=== PATIENT | female | born 1950 | race Caucasian/White ===

== ENCOUNTER → 2019-11-15 | Outpatient (CLI) | payer MEDICARE ==
[2019-11-20 15:07] VITALS: BMI 34.7
== END | disposition home or self-care (01) ==
LOC: LABPAT 12:03
PROVIDERS: ATTEND Orthopaedic Surgery
DX: Z01.812 Encounter for preprocedural laboratory examination (principal); M16.11 Unilateral primary osteoarthritis, right hip
CPT/HCPCS: 87070

== ENCOUNTER → 2019-11-20 | Outpatient (CLI) | payer MEDICARE ==
[2019-11-20 16:39] LABS: Basophils # (A) 0.1 k/uL (0-0.2); Basophils % (A) 1 %; Eosinophils # (A) 0.2 k/uL (0-0.7); Eosinophils % (A) 2 %; HGB 11.2 gm/dL (11.4-16.0); Lymphocytes # (A) 2.2 k/uL (1.0-4.8); Lymphocytes % (A) 25 %; MCH 27.9 pg (25.0-35.0); MCHC 32.1 g/dL (31.0-37.0); MCV 87.2 fL (80.0-100.0); Mean Platelet Volume 7.6; Monocytes # (A) 0.4 k/uL (0-1.0); Monocytes % (A) 4 %; Neutrophils # (A) 5.8 k/uL (1.3-7.7); Neutrophils % (A) 66 %; Platelet Count 293 k/uL (150-450); RBC 4.02 m/uL (3.80-5.40); RDW 13.1 % (11.5-15.5); WBC 8.7 k/uL (3.8-10.6)
[2019-11-20 16:48] LABS: African American GFR (CKD) >90 (>60 ml/min/1.73 sqM); Anion Gap 9 mmol/L; Blood Urea Nitrogen 18 mg/dL (7-17); Carbon Dioxide 27 mmol/L (22-30); Chloride 103 mmol/L (98-107); Non-African American GFR(CKD) 85 (>60 ml/min/1.73 sqM); Potassium 4.7 mmol/L (3.5-5.1); Sodium 139 mmol/L (137-145)
[2019-11-20 16:52] LABS: INR 0.9 (<1.2); Partial Thromboplastin Time 23.9 sec (22.0-30.0); Prothrombin Time 10.1 sec (9.0-12.0)
== END | disposition home or self-care (01) ==
LOC: LABPAT 15:46
PROVIDERS: ATTEND Orthopaedic Surgery
DX: Z01.812 Encounter for preprocedural laboratory examination (principal); M16.11 Unilateral primary osteoarthritis, right hip; Z79.4 Long term (current) use of insulin; Z79.01 Long term (current) use of anticoagulants
CPT/HCPCS: 36415; 80051; 82565; 84520; 85025; 85610; 85730

== ENCOUNTER → 2020-07-22 | Outpatient (CLI) | payer MEDICARE | END | disposition home or self-care (01) | LOC: LABPAT 12:21 | PROVIDERS: ATTEND Orthopaedic Surgery | DX: Z01.812 Encounter for preprocedural laboratory examination (principal); M16.12 Unilateral primary osteoarthritis, left hip | CPT/HCPCS: 87070 ==

== ENCOUNTER 2020-07-28 13:50 | Day surgery (SDC) | payer MEDICARE ==
[2020-07-23 12:00] VITALS: BMI 33.6
--- NOTE | 2020-07-28 09:23 | HP ---
HISTORY AND PHYSICAL REASON FOR ADMISSION: Surgery is 07/28/2020 HISTORY OF PRESENT ILLNESS: Ruth Sommers is a 70-year-old patient seen with symptomatic left hip osteoarthritis. We discussed options for treatment. She elected to proceed with total hip arthroplasty. Consent regarding the procedure was obtained. Medical clearance was provided by Dr. Mendel Hair. PAST MEDICAL HISTORY: Hypertension, insulin-dependent diabetes. PAST SURGICAL HISTORY: Hysterectomy, carpal tunnel release, lumbar spine surgery, right total hip arthroplasty. MEDICATIONS: Furosemide, gabapentin, glyburide, insulin, lisinopril/hydrochlorothiazide. ALLERGIES: CELEBREX. SOCIAL HISTORY: She denies current tobacco use. PHYSICAL EXAMINATION: Evaluation of her left hip: There is diffuse tenderness, a very limited range of motion with severe pain. Positive hip impingement sign. Straight leg raise negative. Her distal neurovascular exam is intact. RADIOGRAPHS: Radiographs of the left hip revealed severe osteoarthritic changes. IMPRESSION: 1. Left hip osteoarthritis. 2. Hypertension. PLAN: Left total hip arthroplasty. Surgery is scheduled for 07/28/2020. MMODL / IJN: [id number] /
[~2020-07-28 13:50] MED LIST: ACETAMINOPHEN TAB 500 MG TAB PO ONE; MELOXICAM 7.5 MG TAB PO ONE; TRANEXAMIC ACID 1,000 MG in SODIUM CHLORIDE 0.9% 100 ML IVPB ONE
[2020-07-28] MEDS ORDERED: HYDROmorphone 0.5 MG/0.5 ML SYRINGE IVP PRN ×4 (13:59→17:33)
[2020-07-28] MEDS ORDERED: ONDANSETRON 4 MG/2 ML VIAL IVP ONE (13:59)
[2020-07-28] MEDS ORDERED: DEXAMETHASONE SOD PHOSPHATE 10 MG/ML 1 ML VIAL IV ONE (13:59)
[2020-07-28] MEDS ORDERED: LACTATED RINGERS 1,000 ML IV SCH (13:59)
[2020-07-28] MEDS ORDERED: LIDOCAINE 1% (10MG/ML) FOR IV START INTRADERMA ONE (14:31)
[2020-07-28 14:35] VITALS: RESP 16
[2020-07-28 14:38] LABS: Glucose,Whole Blood 70 mg/dL (75-99)
[2020-07-28] MEDS ORDERED: DEXTROSE 50% SYRINGE 50 ML IVP ONE ×2 (14:43→18:07)
[2020-07-28 15:06] LABS: Glucose,Whole Blood 118 mg/dL (75-99)
[2020-07-28] MEDS ORDERED: fentaNYL (PF) 50 MCG/ML 2 ML AMP ONE (15:39)
[2020-07-28] MEDS ORDERED: MIDAZOLAM 2 MG/2 ML VIAL ONE (15:39)
[2020-07-28] MEDS ORDERED: SODIUM CHLORIDE 0.9% 100 ML BAG ONE (15:39)
[2020-07-28] MEDS ORDERED: PROPOFOL 10 MG/ML 20 ML VIAL IV ONE (15:39)
[2020-07-28] MEDS ORDERED: TRANEXAMIC ACID 1,000 MG/10 ML VIAL ONE (15:39)
[2020-07-28] MEDS: ROPIVACAINE 246.25 MG, EPINEPHrine 0.5 MG, KETOROLAC 30 MG, cloNIDine HCL/PF 80 MCG, WA... MISCELLANE ONE ×10 (16:16→16:46)
[2020-07-28] MEDS ORDERED: ceFAZolin 1,000 MG in SODIUM CHLORIDE 0.9% 1,000 ML IRRIGATION ONE (16:17)
[2020-07-28] MEDS ORDERED: LACTATED RINGERS 1,000 ML IV ONE (17:01)
--- NOTE | 2020-07-28 17:32 | P.OP ---
Date of Procedure: 07/28/20 Preoperative Diagnosis: Left hip osteoarthritis Postoperative Diagnosis: Left hip osteoarthritis Procedure(s) Performed: Direct anterior left total hip arthroplasty Implants: 1. Depuy Corail KA size 8 standard collar press-fit femoral stem 2. Depuy pinnacle 52 mm multi hole press-fit acetabular shell 3. Depuy pinnacle polyethylene acetabular liner neutral 36 mm ID 52 mm OD 4. Biolox delta ceramic femoral head +1.5 36 mm Anesthesia: local, spinal Surgeon: Franklyn Santana Office Asst #1: Iftikhar Zaldivar Estimated Blood Loss (ml): 225 Pathology: other (Femoral head) Condition: stable Disposition: PACU Indications for Procedure: 70-year-old patient seen with symptomatic left hip osteoarthritis. After treatment options were discussed, she elected to proceed with direct anterior left total hip arthroplasty. Operative Findings: see description of procedure Description of Procedure: The patient was taken to the operative suite. Patient underwent a spinal anesth etic by the department of anesthesia. Patient was then transferred to the [place] table. Patient was given preoperative IV antibiotics and TXA. Both lower extremities were placed in standard leg spars. The hip was then prepped and draped in the normal sterile orthopedic fashion. A standard anterior incision was made beginning 3 cm lateral and 1 cm distal to the ASIS extending 10 cm. Dissection was then carried down through the subcutaneous soft tissues down to the fascia overlying the tensor fascia get. An incision was now made through the fascia. Careful dissection was taken down exposing the tensor fascia get muscle. A Cobra retractor was now placed along the medial femoral neck and a second one along the lateral femoral neck. The venous circumflex vessels were now identified, cauterized and clipped. We identified the anterior hip capsule. An incision was made through the hip capsule along the lateral border. I performed a partial anterior capsulectomy. Retractors were now placed around the femoral neck itself. A femoral neck cut was now made with a sagittal saw. It was completed with an osteotome at the lateral neck area. The femoral head was now removed without difficulty. The extremity was now rotated to 60 of external rotation. It was locked in position. Residual labrum was now debrided out. Serial reaming was performed of the acetabulum while Carlos OLIVA assisted holding an anterior retractor for exposure. Once we reached the appropriate size and a trial was position and fit nicely. The appropriate size was now chosen opened and made available. It was introduced into the acetabulum without difficulty. The C-arm/fluoroscopy was now brought into the operative field. We made sure we had a true AP pelvic view. We now under direct C-arm/f luoroscopy introduced into the acetabular component with appropriate version and inclination. I held the cup in appropriate position well Carlos OLIVA used a mallet to seat the acetabular component. I noted the component now to be well seated and stable. Acetabular cup introduce her was removed. The C-arm was pulled back. An appropriate liner was introduced and clicked into position. It was felt to be stable. At this point retractors were removed. The extremity was now placed into 120 external rotation with no traction. The leg was now dropped to the ground and adducted. Appropriate retractors were now positioned along the proximal femur. We also placed our femoral look into position. Additional capsular releasing was performed to gain access to the proximal femur. We now used a box osteotome. A canal finder was now utilized. Serial broaching was now performed with the assistance of Carlos OLIVA tapping the broaches down with a mallet while held the broach in appropriate rotation and position. This was done until we reached the appropriate size with good overall rotational stability. Appropriate calcar planing was performed. A trial head/neck was placed into position. The hip was now reduced. The C- arm/fluoroscopy was brought back into the operative field. An AP pelvis was obtained to ascertain leg length which appeared to be reasonably aligned. The trial components were positioned well. The C-arm/fluoroscopy was pulled back. Retractors were repositioned and the hip was dislocated. The leg was again taken down to the ground and adducted. Appropriate retractors were repositioned as well as the femoral hook. All trial components were removed. The femoral implant was opened along with the femoral head. The femoral implant was introduced on the appropriate handle into our pre-broached area. I held the component position well Carlos OLIVA used a mallet to seat the femoral component. The femoral component was now noted to be well seated and stable.. The femoral head was introduced with good positioning and fixation noted. Retractors were now removed. The hip was now reduced. There appeared be good positioning of the hip confirmed on intraoperative fluoroscopy. Spot films were obtained to document this. A second gram of TXA was given. The deep and superficial soft tissues were infiltrated with local analgesic. Bipolar cautery had been utilized intermittently through the procedure for hemostasis. The wound was irrigated copiously with pulse lavage mechanical irrigation. The fascia was repaired with Vicryl suture. The subcutaneous soft tissues were repaired in layers with Vicryl suture. The skin was approximated with pernio/Dermabond. Sterile dressings were applied. Patient was then awakened, transferred to a bed and taken to recovery in stable condition. Carlos OLIVA assisted with the complex procedure.
[2020-07-28] MEDS ORDERED: ONDANSETRON 4 MG/2 ML VIAL IVP PRN (17:33)
[2020-07-28] MEDS ORDERED: NALOXONE 0.4 MG/ML 1 ML VIAL IV PRN (17:33)
[2020-07-28] MEDS ORDERED: HYDROcodone/APAP 5-325MG 1 EACH TAB PO PRN (17:33)
[2020-07-28 18:03] LABS: Glucose,Whole Blood 69 mg/dL (75-99)
[2020-07-28 18:26] LABS: Glucose,Whole Blood 120 mg/dL (75-99)
[2020-07-28] MEDS: LACTATED RINGERS 1,000 ML IV SCH (19:14)
[2020-07-28] MEDS ORDERED: ASPIRIN 81 MG PO SCH (21:00)
[2020-07-28] MEDS ORDERED: CYCLOBENZAPRINE 10 MG TAB PO SCH (21:00)
[2020-07-28] MEDS ORDERED: PRAVASTATIN SODIUM 20 MG TAB PO SCH (21:00)
[2020-07-28] MEDS ORDERED: SENNOSIDES-DOCUSATE SODIUM 1 EACH TAB PO SCH (21:00)
[2020-07-28 21:07] LABS: Glucose,Whole Blood 287 mg/dL (75-99)
[2020-07-28] MEDS: metFORMIN 500 MG TAB PO SCH (21:15)
[2020-07-28] MEDS: GABAPENTIN 300 MG CAP PO SCH (21:16)
[2020-07-28] MEDS: INSULIN ASPART (NovoLOG) 100 UNIT/ML VIAL SQ SCH (21:16)
[2020-07-28] MEDS: HYDROcodone/APAP 5-325MG 1 EACH TAB PO PRN (23:12)
[2020-07-29 06:01] LABS: Basophils % (A) 0 %; Eosinophils % (A) 0 %; Hypochromasia Slight; Lymphocytes # (A) 1.4 k/uL (1.0-4.8); Lymphocytes % (A) 7 %; MCH 27.2 pg (25.0-35.0); MCHC 31.2 g/dL (31.0-37.0); MCV 87.3 fL (80.0-100.0); Mean Platelet Volume 7.1; Monocytes # (A) 0.7 k/uL (0-1.0); Monocytes % (A) 4 %; Neutrophils # (A) 16.3 k/uL (1.3-7.7); Neutrophils % (A) 88 %; Platelet Count 312 k/uL (150-450); RBC 3.43 m/uL (3.80-5.40); RDW 13.6 % (11.5-15.5); WBC 18.6 k/uL (3.8-10.6)
[2020-07-29] MEDS: LACTATED RINGERS 1,000 ML IV SCH (06:06)
[2020-07-29 06:08] LABS: HGB 9.3 gm/dL (11.4-16.0)
[2020-07-29 07:14] LABS: Glucose,Whole Blood 219 mg/dL (75-99)
[2020-07-29] MEDS: metFORMIN 500 MG TAB PO SCH (07:47)
[2020-07-29] MEDS: GABAPENTIN 300 MG CAP PO SCH (07:47)
[2020-07-29] MEDS: HYDROcodone/APAP 5-325MG 1 EACH TAB PO PRN (07:47)
[2020-07-29] MEDS: INSULIN ASPART (NovoLOG) 100 UNIT/ML VIAL SQ SCH ×2 (07:49→12:22)
[2020-07-29 08:06] VITALS: BP 121/67; PULSE 67; TEMP 97.9
--- NOTE | 2020-07-29 08:59 | FL ---
Fluoroscopy HISTORY: Anterior hip replacement 10 seconds fluoroscopy time supplied to the referring clinician. 2 intraoperative C-arm images docum ent the procedure. See dictated report from orthopedic surgery.
[2020-07-29] MEDS ORDERED: FUROSEMIDE 20 MG TAB PO SCH (09:00)
[2020-07-29] MEDS ORDERED: ESCITALOPRAM 10 MG TAB PO SCH (09:00)
[2020-07-29] MEDS ORDERED: ENOXAPARIN 40 MG/0.4 ML SYRINGE SQ SCH (09:00)
[2020-07-29] MEDS ORDERED: amLODIPine 5 MG TAB PO SCH (09:00)
[2020-07-29] MEDS ORDERED: PANTOPRAZOLE 40 MG/10 ML VIAL IVP SCH (09:00)
[2020-07-29] MEDS ORDERED: MAGNESIUM OXIDE 400 MG TAB PO SCH (09:00)
[2020-07-29] MEDS ORDERED: LISINOPRIL-HCTZ 20-12.5 MG 1 EACH TAB PO SCH (09:00)
--- NOTE | 2020-07-29 09:00 | XR ---
Limited left hip HISTORY: Anterior hip replacement 2 intraoperative images document the procedure
[2020-07-29 10:12] LABS: African American GFR (CKD) 76.1 (60.0-200.0); Anion Gap 7.9 mmol/L (4.00-12.00); BUN/Creat Ratio 33.33 Ratio (12.00-20.00); Calcium 8.4 mg/dL (8.7-10.3); Carbon Dioxide 25.1 mmol/L (21.6-31.8); Non-African American GFR(CKD) 65.7 (60.0-200.0); Potassium 5.7 mmol/L (3.5-5.5)
--- NOTE | 2020-07-29 10:26 | P.PN ---
Subjective Progress Note Date: 07/29/20 Principal diagnosis: Status post direct anterior left total hip arthroplasty patient is examined today at bedside, she's resting comfortably. She's done well with therapy. She denies any chest pain or shortness of breath. Objective - Vital Signs Vital signs: Vital Signs Temp 97.9 F 07/29/20 07:07 Pulse 67 07/29/20 08:00 Resp 16 07/29/20 08:00 BP 121/67 07/29/20 07:07 Pulse Ox 97 07/29/20 07:07 Intake & Output 07/28/20 07/29/20 07/29/20 18:59 06:59 18:59 Intake Total 1701 240 Output Total 225 Balance 1476 240 Weight 79.3 kg 79.3 kg Intake: IV 1701 Intake, IV Titration 240 Amount Lactated Ringers 1,000 ml 240 @ 80 mls/hr IV .[id number] NURIS Rx#:[id number] Output: Estimated Blood Loss 225 Other: Voiding Method Toilet Toilet # Voids 2 - Exam Left lower extremity: Incision is clean, dry, and intact. The foam dressing is in good condition. There is minimal soft tissue swelling and ecchymosis surrounding the medial and lateral aspects of the incision. Calf is soft, no tenderness with palpation. Plantar flexion, dorsiflexion, EHL, FHL are intact. Sensory exam to light touch throughout the extremity is intact, dorsal pedis pulses 2+. - Labs CBC & Chem 7: 07/29/20 05:29 07/29/20 05:29 Labs: Abnormal Lab Results - Last 24 Hours (Table) 07/28/20 07/28/20 07/28/20 Range/Units 14:33 15:05 18:02 WBC (3.8-10.6) k/uL RBC (3.80-5.40) m/uL Hgb (11.4-16.0) gm/dL Hct (34.0-46.0) % Neutrophils # (1.3-7.7) k/uL Sodium (135-145) mmol/L Potassium (3.5-5.5) mmol/L BUN (9.0-27.0) mg/dL BUN/Creatinine Ratio (12.00-20.00) Ratio Glucose (70-110) mg/dL POC Glucose (mg/dL) 70 L 118 H 69 L (75-99) mg/dL Calcium (8.7-10.3) mg/dL 07/28/20 07/28/20 07/29/20 Range/Units 18:24 21:05 05:29 WBC 18.6 H (3.8-10.6) k/uL RBC 3.43 L (3.80-5.40) m/uL Hgb 9.3 L D (11.4-16.0) gm/dL Hct 30.0 L (34.0-46.0) % Neutrophils # 16.3 H (1.3-7.7) k/uL Sodium (135-145) mmol/L Potassium (3.5-5.5) mmol/L BUN (9.0-27.0) mg/dL BUN/Creatinine Ratio (12.00-20.00) Ratio Glucose (70-110) mg/dL POC Glucose (mg/dL) 120 H 287 H (75-99) mg/dL Calcium (8.7-10.3) mg/dL 07/29/20 07/29/20 Range/Units 05:29 07:06 WBC (3.8-10.6) k/uL RBC (3.80-5.40) m/uL Hgb (11.4-16.0) gm/dL Hct (34.0-46.0) % Neutrophils # (1.3-7.7) k/uL Sodium 134 L (135-145) mmol/L Potassium 5.7 H (3.5-5.5) mmol/L BUN 30.0 H (9.0-27.0) mg/dL BUN/Creatinine Ratio 33.33 H (12.00-20.00) Ratio Glucose 232 H (70-110) mg/dL POC Glucose (mg/dL) 219 H (75-99) mg/dL Calcium 8.4 L (8.7-10.3) mg/dL Assessment and Plan Assessment: Status post direct anterior left total hip arthroplasty Plan: Pain control, plan for discharge home on oral medication GI and DVT prophylaxis, aspirin 81 mg twice a day Wound care instructions were discussed Activity level and home exercise program discussed Medical recommendations Plan for discharge home today
--- NOTE | 2020-07-29 10:29 | P.DS ---
Providers Date of admission: 07/28/2020 Expected date of discharge: 07/29/20 Attending physician: Franklyn Santana Consults: 07/28/20 17:33 Consult Physician Routine Consulting Provider: Mendel Hair Reason/Comments: Medical management Do you want consulting provider notified?: Yes Primary care physician: Stated None Hospital Course: Date of admission: 07/28/2020 Date of discharge: 07/29/2020 Admission diagnosis: Status post direct anterior left total hip arthroplasty Discharge diagnosis: Same Attending physician: Direct anterior left total hip arthroplasty Surgical procedures: Direct anterior left total hip arthroplasty Brief history: Patient is a 70-year-old female with a history of progressive primary left hip osteoarthritis. At this point patient has failed conservative treatment measures and has opted to proceed with a elective direct anterior left total hip arthroplasty. Hospital course: Details of patient's surgery can be found in operative report. Patient tolerated the procedure well and was subsequently transported to orthopedic floor. Patient's orthopeidc and medical care was provided daily. Patient had daily laboratory tests performed for evaluation of overall blood counts. Patient had daily physical therapy to include strengthening range of motion as well as education with walker ambulation. Patient was treated with Lovenox for their postoperative DVT prophylaxis during their inpatient stay. Patient was noted to have a relatively uneventful postoperative course. Patient reported satisfactory pain control with oral pain medications by postoperative day 0. Patient showed satisfactory progress with physical therapy. Patient moved steadily through the program and had no difficulty meeting the goals by postoperative day 1. Given patient's otherwise satisfactory course and having met physical therapy goals, plan is to discharge patient home on postoperative day 1. Discharge condition/disposition: Patient will be discharged home in stable condition. Discharge medications: Instructions are given on resumption of patient's normal daily medications per primary care recommendation, in addition patient will be prescribed Fernwood 5 mg/325 mg, Colace 100 mg, aspirin 81 mg, ferrous sulfate 325 mg. Discharge instructions: 1. Wound care and infection precautions, keep incision dry and covered while showering, no lotions, creams, moisturizers. No soaking, tubs, pools, hottubs. Do not scrub over the incision. 2. Weight-bear as tolerated with walker / cane until follow-up. 3. Ice and elevate when necessary. Do not exceed 20 minutes per hour with ice pack. 4. Utilize compression sleeve until seen at first follow up appointment. 5. Visiting nursing care. 6. Home physical therapy. 7. Pain meds and anticoagulants per prescription. 8. Pain medication has potential to cause constipation. Increase oral fluid and fiber intake. Contact primary care provider if you have not had a bowel movement within 48 hours after discharge 9. No anti-inflammatory medication until discussed at first post operative visit, this including Motrin, Aleve, Mobic, Diclofenac. 10. Follow up in office at 2 weeks postop with Carlos Zaldivar PA-C 11. Follow up with your primary care doctor 7-10 days after discharge. 12. Contact [facility] with any questions, . Procedures: Direct anterior left total hip arthroplasty Patient Condition at Discharge: Good Plan - Discharge Summary Discharge Rx Participant: No New Discharge Prescriptions: New Aspirin [Adult Low Dose Aspirin EC] 81 mg PO BID #60 tablet. Docusate [Colace] 100 mg PO DAILY #30 capsule Ferrous Sulfate [Feosol] 325 mg PO BID #40 tab Hydrocodone/Acetaminophen [[place]wood 5-325] 1 - 2 each PO Q6HR PRN #40 tab PRN Reason: Pain Discontinued Aspirin [Adult Low Dose Aspirin EC] 81 mg PO MOWEFR No Action Insulin Glargine [Lantus] 140 unit SQ 1730 metFORMIN HCL [Glucophage] 500 mg PO BID glyBURIDE [Diabeta] 5 mg PO AC-BID Lisinopril-Hctz 20-12.5 mg [Zestoretic 20-12.5] 1 tab PO DAILY Furosemide [Lasix] 20 mg PO DAILY Escitalopram [Lexapro] 10 mg PO DAILY Pravastatin Sodium [Pravachol] 20 mg PO HS Cyclobenzaprine [Flexeril] 10 mg PO HS Magnesium 500 mg PO DAILY Gabapentin [Neurontin] 300 mg PO TID Acetaminophen [Tylenol Extra Strength] 500 mg PO Q6H PRN PRN Reason: Pain amLODIPine [Norvasc] 5 mg PO DAILY Discharge Medication List Acetaminophen [Tylenol Extra Strength] 500 mg PO Q6H PRN 11/20/19 [History] Cyclobenzaprine [Flexeril] 10 mg PO HS 11/20/19 [History] Escitalopram [Lexapro] 10 mg PO DAILY 11/20/19 [History] Furosemide [Lasix] 20 mg PO DAILY 11/20/19 [History] Gabapentin [Neurontin] 300 mg PO TID 11/20/19 [History] Insulin Glargine [Lantus] 140 unit SQ 1730 11/20/19 [History] Lisinopril-Hctz 20-12.5 mg [Zestoretic 20-12.5] 1 tab PO DAILY 11/20/19 [History] Magnesium 500 mg PO DAILY 11/20/19 [History] Pravastatin Sodium [Pravachol] 20 mg PO HS 11/20/19 [History] glyBURIDE [Diabeta] 5 mg PO AC-BID 11/20/19 [History] metFORMIN HCL [Glucophage] 500 mg PO BID 11/20/19 [History] amLODIPine [Norvasc] 5 mg PO DAILY 07/23/20 [History] Aspirin [Adult Low Dose Aspirin EC] 81 mg PO BID #60 tablet. 07/29/20 [Rx] Docusate [Colace] 100 mg PO DAILY #30 capsule 07/29/20 [Rx] Ferrous Sulfate [Feosol] 325 mg PO BID #40 tab 07/29/20 [Rx] Hydrocodone/Acetaminophen [Fernwood 5-325] 1 - 2 each PO Q6HR PRN #40 tab 07/29/20 [Rx] Follow up Appointment(s)/Referral(s): Mendel Hair DO [Primary Care Provider] - 1 Week Iftikhar Zaldivar PAC [PHYSICIAN SILK PRESSER] - 08/13/20 3:30 pm Activity/Diet/Wound Care/Special Instructions: Orthopedic Discharge Instructions: 1. Wound care and infection precautions, keep incision dry and covered while showering, no lotions, creams, moisturizers. No soaking, pools, hot tubs. Do not scrub over incision. 2. Weight-bear as tolerated with walker / cane until follow-up. 3. Ice and elevate when necessary. Do not exceed 20 minutes per hour with ice pack. 4. Utilize compression sleeve until seen at first follow up appointment. 5. Pain meds and anticoagulants per prescription. 6. Pain medication has potential to cause constipation. Increase oral fluid and fiber intake. Contact primary care provider if you have not had a bowel movement within 48 hours after discharge. 7. No anti-inflammatory medication until discussed at first post operative visit, this including Motrin, Aleve, Mobic, Diclofenac. 8. Follow up in office at 2 weeks postop with Carlos Zaldivar PA-C 9. Follow up with your primary care doctor 7-10 days after discharge. 10. Contact [facility] with any questions, . Discharge Disposition: HOME WITH HOME HEALTH SERVICES
[2020-07-29 11:34] LABS: Glucose,Whole Blood 207 mg/dL (75-99)
[2020-07-29] MEDS ORDERED: INSULIN DETEMIR (LEVEMIR) 100 UNIT/ML SYR SQ SCH (17:30)
[2020-07-29 22:19] LABS: Hemoglobin A1C 7.6 % (4.0-6.0)
== END 2020-07-29 13:18 | disposition home health service (06) ==
LOC: OR 13:50 → 4SSUR 18:53 → OR 07-29 13:18
PROVIDERS: ATTEND Orthopaedic Surgery
DX: M16.12 Unilateral primary osteoarthritis, left hip (principal); I10 Essential (primary) hypertension; E11.9 Type 2 diabetes mellitus without complications; E78.5 Hyperlipidemia, unspecified; F32.9 Major depressive disorder, single episode, unspecified; Z88.6 Allergy status to analgesic agent; Z79.4 Long term (current) use of insulin; Z79.899 Other long term (current) drug therapy; Z90.710 Acquired absence of both cervix and uterus; Z96.641 Presence of right artificial hip joint; Z98.890 Other specified postprocedural states
CPT/HCPCS: 97110; 97161; 80048; 85025; 88300; 83036; 73501; 27130; C1776; J2250; J0171; J1100; J0690 ×3; J2405; J1650; J3010; J1885; J2795; J2704; J0735; 36415; 86850; 86900; 86901

== ENCOUNTER → 2023-03-10 | Outpatient (CLI) | payer MEDICARE ==
[2023-03-10 14:14] LABS: African American GFR (CKD) >90 (>60 ml/min/1.73 sqM); Blood Urea Nitrogen 24 mg/dL (7-17); Non-African American GFR(CKD) >90 (>60 ml/min/1.73 sqM)
--- NOTE | 2023-03-10 15:45 | CT ---
EXAMINATION TYPE: CT abdomen pelvis w con DATE OF EXAM: 03/10/2023 COMPARISON: None HISTORY: gastric mass CT DLP: 1446 mGycm CONTRAST: CT scan of the abdomen and pelvis is performed with Oral Contrast and with IV Contrast, patient injec richard with 100 mL of Isovue 300. FINDINGS: LUNG BASES-: No visible nodule. No infiltrate. LIVER/GB: No calcified gallstones. No space occupying hepatic lesion. Biliary tree is of normal ca liber. Artifact limits evaluation of the liver. PANCREAS: No inflammation. No distinct mass. SPLEEN: No splenic enlargement. No lesion seen. ADRENALS: No nodule. No thickening. KIDNEYS/BLADDER: No hydronephrosis. No nephrolithiasis. No distinct renal mass. Urinary bladder g rossly unremarkable. BOWEL: Normal appendix. There is exophytic Gastric mass measuring 4.6 x 3.3 x 3.4 cm. Malignancy is not excluded. Direct visualization and tissue diagnosis is advised. Normal bowel caliber. No inflamm ation. GENITAL ORGANS: No gross abnormality. LYMPH NODES: No greater than 1cm abdominal or pelvic lymph nodes are appreciated. AORTA: No significant abnormality. OSSEOUS STRUCTURES: Postoperative and degenerative changes lumbar spine. Grade 1 anterolisthesis L3 o n L4. OTHER: No significant additional abnormality is seen. IMPRESSION: 1. There is exophytic Gastric mass measuring 4.6 x 3.3 x 3.4 cm. Malignancy is not excluded. Direct v isualization and tissue diagnosis is advised.
== END | disposition home or self-care (01) ==
LOC: RADCTMAIN 10:06
PROVIDERS: ATTEND Surgery
DX: K31.9 Disease of stomach and duodenum, unspecified (principal)
CPT/HCPCS: 82565; 84520; 74177; 36415; Q9967

== ENCOUNTER → 2023-07-29 | Outpatient (CLI) | payer MEDICARE ==
[2023-07-29 13:32] LABS: African American GFR (CKD) 89 (>60 ml/min/1.73 sqM); Blood Urea Nitrogen 28 mg/dL (7-17); Non-African American GFR(CKD) 77 (>60 ml/min/1.73 sqM)
--- NOTE | 2023-07-29 15:57 | CT ---
EXAMINATION TYPE: CT ChestAbdPelvis w con DATE OF EXAM: 07/29/2023 COMPARISON: 03/10/2023 HISTORY: 73-year-old female C49.A2 h/o stomach CA f/u TECHNIQUE: Contiguous axial scanning of the chest, abdomen, and pelvis performed with IV Contrast, pa tient injected with 100 mL of Isovue 300. Delayed images through the kidneys were obtained. Coronal/s agittal reconstructions performed. CT DLP: 1487.8 mGycm Automated exposure control for dose reduction was used. FINDINGS: CHEST: The heart is upper limits of normal in size. Trace pericardial fluid along the lateral left ventricul ar wall. Extensive LAD and circumflex coronary calcifications are present. Aorta normal caliber with mild atherosclerotic arch calcifications. Moderate atherosclerotic narrowin g at the origin of the left subclavian artery. There are are abnormal right axillary lymph nodes thickened up to 1.8 cm. There is a lateral right br east mass measuring 2.7 cm. Otherwise, no thoracic lymphadenopathy seen. Mild diffuse bronchial wall thickening appears chronic or could reflect bronchitis or asthma. No cons olidation or pleural effusion. ABDOMEN: No focal liver lesion or biliary ductal dilatation. Portal venous system is patent. Gallbladder, adrenal glands, kidneys, spleen with hilar splenule, and pancreas within normal limits. There is postsurgical change along the anterior wall of the proximal gastric body at the site of prev ious gastric wall mass. No abnormal soft tissue thickening is seen here. Moderate atherosclerotic calcifications infrarenal abdominal aorta and iliac arteries. More severe at herosclerotic changes bilateral proximal common iliac arteries. Normal appendix. Mild to moderate stool burn. No pericolic inflammatory change. PELVIS: Bladder urine distended. Prominent metal artifact relating to the patient's bilateral total hip arthr oplasties limiting visualization of pelvic structures. Numerous pelvic phleboliths. Uterus surgically absent. Both ovaries are visualized. No obvious fluid collection in the pelvis. Prominent lymph node s in the pelvis along the external iliac chains remain unchanged measuring up to 1.0 cm. BONES: Advanced disc/endplate degenerative change L2-L3. Moderate at L4-L5. Hypertrophic facet arthropathy m id to lower lumbar spine with degenerative grade 1 anterolisthesis L3-L4. Previous L4-L5 posterior an d interbody fusion. Extensive DISH mid and lower thoracic spine. No osseous destructive process. IMPRESSION: 1. INTERVAL SURGICAL RESECTION OF THE PREVIOUS MASS ALONG THE ANTERIOR WALL OF THE PROXIMAL GASTRIC B LEENA. NO RESIDUAL OR RECURRENT DISEASE IDENTIFIED. 2. NOTE THE SUSPICIOUS LATERAL RIGHT BREAST MASS MEASURING 2.7 CM WITH RIGHT AXILLARY ADENOPATHY KWAKU URING UP TO 1.8 CM. FURTHER DIAGNOSTIC MAMMOGRAPHIC/ULTRASOUND WORKUP AND ONCOLOGY EVALUATION RECOMME NDED.
--- NOTE | 2023-08-01 09:35 | MM ---
Reason for Exam: Screening (asymptomatic). Baseline mammogram. Patient History: Menarche at age 20. First Full-Term at age 25. Hysterectomy at age 37. Risk Values: Maryam 5 year model risk: 1.4%. NCI Lifetime model risk: 4.0%. Prior Study Comparison: Patient's first Mammogram. Tissue Density: There are scattered fibroglandular densities. Findings: Analyzed By CAD. 2.8 x 2.6 cm mass upper outer quadrant right breast approximately 8 cm from the nipple. Ultrasound is recommended. No additional masses seen. Vascular calcifications noted left breast. Overall Assessment: Incomplete: need additional imaging evaluation, BI-RAD 0 Management: Diagnostic Breast Ultrasound of the right breast. . Patient should continue monthly self-breast exams. A clinical breast exam by your physician is recommended on an annual basis. This exam should not preclude additional follow-up of suspicious palpable abnormalities. Note on Maryam scores and lifetime risk: 1. A Maryam score greater than 3% is considered moderate risk. If this is the case, consider specialist referral to assess eligibility for a risk reducing agent. 2. If overall lifetime risk for the development of breast cancer is 20% or higher, the patient may qualify for future screening with alternating mammogram and breast MRI. Electronically signed and approved by: Tani Kelly M.D. Radiologis
== END | disposition home or self-care (01) ==
LOC: RADCTMAIN 12:43
PROVIDERS: ATTEND Internal Medicine
DX: Z12.31 Encounter for screening mammogram for malignant neoplasm of breast (principal); C49.A2 Gastrointestinal stromal tumor of stomach; N63.10 Unspecified lump in the right breast, unspecified quadrant; R59.0 Localized enlarged lymph nodes
CPT/HCPCS: 82565; 84520; 77067; 77063; 71260; 74177; 36415; Q9967

== ENCOUNTER → 2023-08-02 | Outpatient (CLI) | payer MEDICARE ==
--- NOTE | 2023-08-02 13:25 | USB ---
Reason for Exam: Additional evaluation requested from abnormal screening. Patient History: Menarche at age 20. First Full-Term at age 25. Hysterectomy at age 37. Risk Values: Maryam 5 year model risk: 1.4%. NCI Lifetime model risk: 4.0%. Technique: Method: Targeted. Prior Study Comparison: 07/29/2023 Bilateral MG 3D screening mammo w/cad, [facility]. Findings: The upper outer quadrant of the right breast, the axilla of the right breast and the retroareolar of the right breast were scanned. There is a 2.0 x 2.7 x 1.8 cm slightly lobular hypoechoic area may have some posterior wall enhancement. Complex cysts or mass may be present. Additional workup with biopsy is recommended. This correlates with mammographic findings. Overall Assessment: Suspicious, BI-RAD 4 Management: Ultrasound Core Biopsy of the right breast. A negative mammogram report should not preclude additional follow up of suspicious palpable abnormalities. Patient should continue monthly self breast exam. A clinical breast exam by your physician is recommended on an annual basis and results should be correlated with mammographic findings. Electronically signed and approved by: Andriy Crowe D.O. Radiologis
== END | disposition home or self-care (01) ==
LOC: RADUSWWP 12:47
PROVIDERS: ATTEND Internal Medicine
DX: R92.8 Other abnormal and inconclusive findings on diagnostic imaging of breast (principal)

== ENCOUNTER → 2023-08-15 | Day surgery (SDC) | payer MEDICARE ==
--- NOTE | 2023-08-15 14:35 | MM ---
Reason for Exam: Post Procedure Mammogram. Last screening mammogram was performed less than 1 month ago. Patient History: Menarche at age 20. First Full-Term at age 25. Hysterectomy at age 37. Colorectal cancer. Risk Values: Maryam 5 year model risk: 1.4%. NCI Lifetime model risk: 4.0%. Prior Study Comparison: 07/29/2023 Bilateral MG 3D screening mammo w/cad, [facility]. Tissue Density: Right: There are scattered fibroglandular densities. Overall Assessment: Post procedure mammogram for marker placement Management: Post Mammogram for [place] Placement Electronically signed and approved by: Malachi Glez DO
--- NOTE | 2023-08-19 13:20 | USB ---
Risk Values: Maryam 5 year model risk: 1.4%. NCI Lifetime model risk: 4.0%. Prior Study Comparison: 07/29/2023 Bilateral MG 3D screening mammo w/cad, [facility]. Pathology Description: Location: 10 o'clock, upper outer quadrant. Marker Left Behind. Needle Type: Mammotome Cores: 3 Skin Nicks: 1 Gauge: 13 Pathology Description: Location: axilla. Marker Left Behind. Cores: 3 Gauge: 14 The procedure of ultrasound guided core biopsy was explained to the patient. Benefits, alternatives, and risks were discussed. An informed consent was then obtained. A time out was performed The patient was placed in supine positioning for imaging and for the procedure. The overlying skin was prepped and draped in usual sterile fashion. 5 ml 1% lidocaine was used as anesthetic into the skin and subcutaneous tissue up to area of concern in right breast mass. A inna was made with surgical scalpel. Under ultrasound guidance, a 12-gauge vacuum assisted biopsy gun device was used to obtain 3 core samples. Following this, a wing clip biopsy clip was left in the lesion. Next attention was taken to the axillary lymph node and 3 core samples were taken with butterfly [place] kacie clip left in place. A post procedure mammogram was performed, clip seen and correlates with the right breast mass the axillary clip was not in the [id number] on mammography. The patient tolerated the procedure well without any immediate complication. The patient was discharged home in stable condition. Impression: Successful, uncomplicated ultrasound guided core biopsy of area of concern in the right breast mass and right axillary lymph node. PATHOLOGY STATUS: Results pending. Pathology Results: Result: Malignant, Invasive ductal carcinoma. A. RIGHT BREAST, 10:00 POSITION, ULTRASOUND GUIDED CORE BIOPSY: Invasive high grade ductal carcinoma with abundant necrosis (see surgical pathology cancer case summary and comment). B. RIGHT BREAST AXILLA, ULTRASOUND GUIDED CORE BIOPSY: High grade ductal carcinoma with associated lymphoid tissue, compatible with metastatic high grade ductal carcinoma (see surgical pathology cancer case summary and comment). Overall Assessment: Malignant Management: Surgical Consultation of the right breast. Electronically signed and approved by: Malachi Glez DO
== END ==
LOC: RADUSWWP 12:30
PROVIDERS: ATTEND Internal Medicine
DX: C50.411 Malignant neoplasm of upper-outer quadrant of right female breast (principal)
CPT/HCPCS: 88305; 88342; 88341; 77065; 19083; A4648

== ENCOUNTER 2023-09-23 07:48 | Day surgery (SDC) | payer MEDICARE ==
--- NOTE | 2023-09-23 07:34 | P.GSHP ---
History of Present Illness H&P Date: 09/23/23 Chief Complaint: Right breast cancer 73-year-old female seen today for elective surgery for her recently diagnosed right breast cancer. Patient found to have a 2.7 cm upper outer quadrant mass right breast high-grade invasive ductal carcinoma. She is ER/AR positive, HER-2/cristina negative. She had multiple lymph nodes also seen in the right axilla on CAT scan the largest of which showed metastatic disease. Patient had an Oncotype BX core of 34 and oncology has plans for adjuvant chemotherapy. After discussion with oncology and the patient decision has been made to proceed with upfront surgery rather than neoadjuvant treatment. Past Medical History Past Medical History: Cancer, Diabetes Mellitus, Hyperlipidemia, Hypertension, Osteoarthritis (OA) Additional Past Medical History / Comment(s): Neuropathy in hands and feet, back pain, macular edema, gout, carpal tunnel bilateral. 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 Past Anesthesia/Blood Transfusion Reactions: No Reported Reaction Smoking Status: Former smoker - Past Family History Sister(s) Family Medical History: Cancer Additional Family Medical History / Comment(s): skin Father Family Medical History: Cancer Additional Family Medical History / Comment(s): skin Medications and Allergies Home Medications Medication Instructions Recorded Confirmed Type Acetaminophen [Tylenol Extra 1,500 mg PO Q6H PRN 11/20/19 09/20/23 History Strength] Cyclobenzaprine [Flexeril] 10 mg PO HS 11/20/19 09/20/23 History Escitalopram [Lexapro] 10 mg PO DAILY 11/20/19 09/20/23 History Furosemide [Lasix] 20 mg PO DAILY 11/20/19 09/20/23 History Gabapentin [Neurontin] 300 mg PO TID 11/20/19 09/20/23 History Insulin Glargine [Lantus] 140 unit SQ DAILY 11/20/19 09/20/23 History Lisinopril-Hctz 20-12.5 mg 1 tab PO DAILY 11/20/19 09/20/23 History [Zestoretic 20-12.5] Pravastatin Sodium [Pravachol] 20 mg PO HS 11/20/19 09/20/23 History amLODIPine [Norvasc] 5 mg PO DAILY 07/23/20 09/20/23 History Aspirin [Adult Low Dose Aspirin EC] 81 mg PO BID #60 tablet. 07/29/20 09/20/23 Rx Folic Acid 0.4 mg PO DAILY 08/10/23 09/20/23 History metHOTREXate sodium [Methotrexate] 20 mg PO DAILY 08/10/23 09/20/23 History INSULIN LISPRO (HumaLOG) [humaLOG] 0 units SQ DIRECTED 09/20/23 09/20/23 History Unk Vitamin B12 Shot 1 injection SQ Q30D 09/20/23 09/20/23 History Allergies Allergy/AdvReac Type Severity Reaction Status Date / Time celecoxib [From Celebrex] Allergy fluid Verified 09/20/23 10:52 retention Surgical - Exam Physical exam: General: Well-developed, well-nourished HEENT: Normocephalic, sclerae nonicteric Right breast: Upper outer quadrant mass 2.5-3 cm, right axillary lymph node palpable Left breast: No masses, no adenopathy Abdomen: Nontender, nondistended Extremities: No edema Neuro: Alert and oriented Assessment and Plan (1) Breast cancer, right Narrative/Plan: 73-year-old female with stage IIB right breast cancer. We'll proceed with right breast wire localization lumpectomy, right axillary lymph node wire localization, right axillary node dissection. Risks of bleeding, infection, scarring, numbness, lymphedema, nerve injury, weakness, recurrence, possible need for further surgery, need for drain placement all reviewed. She understands and wishes to proceed. Status: Acute Code(s): C50.911 - MALIGNANT NEOPLASM OF UNSP SITE OF RIGHT FEMALE BREAST SNOMED Code(s): 778711395
[~2023-09-23 07:48] MED LIST changes: -ACETAMINOPHEN TAB 500 MG TAB PO ONE; +ACETAMINOPHEN TAB 500 MG TAB PO PRN; +DEXAMETHASONE SOD PHOSPHATE 4 MG/ML 1 ML VIAL IV ONE; +HEPARIN SODIUM,PORCINE/PF 5,000 UNIT/0.5 ML SYRINGE SQ PRN; -MELOXICAM 7.5 MG TAB PO ONE; +MIDAZOLAM 2 MG/2 ML VIAL IV PRN; +ONDANSETRON 4 MG/2 ML VIAL IVP ONE; -TRANEXAMIC ACID 1,000 MG in SODIUM CHLORIDE 0.9% 100 ML IVPB ONE
[2023-09-23] MEDS: LACTATED RINGERS 1,000 ML IV SCH (08:14)
[2023-09-23] MEDS ORDERED: ALPRAZolam 0.25 MG TAB ONE (08:35)
[2023-09-23] MEDS ORDERED: ALPRAZolam 0.25 MG TAB PO ONE (08:36)
[2023-09-23 08:48] LABS: Glucose,Whole Blood 98 mg/dL (70-110)
[2023-09-23 09:13] VITALS: RESP 16
[2023-09-23] MEDS ORDERED: LIDOCAINE 1% INJ 10MG/ML (20 ML MDV) SQ ONE (09:26)
[2023-09-23] MEDS ORDERED: PROPOFOL 10 MG/ML 20 ML VIAL IV ONE (11:00)
[2023-09-23] MEDS ORDERED: GLYCOPYRROLATE 0.2 MG/ML 2 ML VIAL ONE (11:00)
[2023-09-23] MEDS ORDERED: LIDOCAINE 1% INJ 10MG/ML (20 ML MDV) ONE (11:00)
[2023-09-23] MEDS ORDERED: fentaNYL (PF) 50 MCG/ML 2 ML AMP ONE (11:00)
[2023-09-23] MEDS ORDERED: MIDAZOLAM 2 MG/2 ML VIAL ONE (11:00)
[2023-09-23] MEDS ORDERED: KETOROLAC 15 MG/ML 1 ML VIAL ONE (11:00)
[2023-09-23] MEDS ORDERED: PHENYLEPHRINE 10 MG/ML 5 ML VIAL ONE (11:00)
--- NOTE | 2023-09-23 11:53 | USB ---
HISTORY: Right breast cancer with axillary metastasis. COMPARISON: Right breast ultrasound 08/02/2023, screening bilateral mammogram 07/29/2023, right breast ultrasound biopsy 08/15/23 PROCEDURE: The procedure was explained to the patient and all questions were answered. The potential risks inclu ding but not limited to bleeding, infection, and potential need for additional work up were discussed . Informed, written consent was obtained. The correct site was marked. A time out was performed. Ultrasound guided localization was performed for the mass located in the right breast at 10:00 8 cm f rom the nipple. This was described on the previous report and previously sampled with biopsy clip dem onstrated. The skin was prepped in the usual manner. Local anesthetic was administered to the access site using approximately 5 mL of lidocaine. The abnormality was approached from the lateral aspect.?A 7 cm Kopan wire was placed through the lesion under constant ultrasound guidance. The needle was rem soniya.?Attention was then turned to the metastatic right axillary lymph node. Local anesthetic was adm inistered to the access site using approximately 5 mL of lidocaine. A 7 cm Kopan wire was placed thro ugh the lesion under constant ultrasound guidance with the tip identified in the center of the lymph node. This is done through an axillary lateral approach. The needle was removed. The patient tolerate d the procedure and was sent to preoperative holding. Post-procedure mammographic images were obtained demonstrating the right upper outer quadrant breast mass with biopsy clip and wire coursing through the mass. Additionally there is partial evaluation of right axillary wire with the tip appearing to be within a lymph node at the edge of the image. No de finitive clip identified likely due to posterior location of the lymph node. IMPRESSION: Successful ultrasound guided localization of right breast mass and right axillary lymph node.
--- NOTE | 2023-09-23 13:30 | MM ---
Electronically signed and approved by: Antonio Matthews D.O.
--- NOTE | 2023-09-23 13:45 | P.OP ---
Date of Procedure: 09/23/23 Procedure(s) Performed: PREOPERATIVE DIAGNOSIS: Right breast cancer POSTOPERATIVE DIAGNOSIS: Same PROCEDURE: Right Breast wire localization lumpectomy with axillary node dissection and wire localization and right axillary lymph node SURGEON: Robb EBL: 20 mL ANESTHESIA: General COMPLICATIONS: None OPERATIVE PROCEDURE: Patient was placed on the operating room table in the supine position. The breast was prepped and draped in usual sterile fashion. A single incision was made for both the axillary dissection and the cancer removal. A curvilinear incision was made in the inferior axillary hairline. The patient had 2 wires present one entering into the axilla from lateral to medial and one entering into the upper outer quadrant of the breast from lateral to medial. The axilla was first addressed. Dissection through the subcutaneous tissues and the deltopectoral fascia took place using electrocautery. The axilla was inspected. The patient had multiple matted nodes in the axilla. Many of these nodes were enlarged. The axillary vein was identified. The axillary contents and palpable nodes were then swept inferiorly. The thoracodorsal nerve and vascular complex were left intact. The long thoracic nerve was likewise left intact. All palpable lymph nodes were removed at this time. The dissection took place using a combination of LigaSure, electrocautery, blunt dissection, Ligaclip, and 3-0 Vicryl ties. The specimen was sent to pathology labeled axillary contents. The area was inspected for bleeding and none was seen. We then addressed the lumpectomy. The patient's mass was present in the upper outer quadrant. Clinically was not involving the underlying pectoralis major fascia or skin however it was in close proximity to both structures. Flaps were raised anteriorly just beneath the dermis given the proximity to the skin. Flaps were then raised posteriorly along the fascia of the pectoralis. Once I was above and below the palpable mass where the wire was entering the lateral and medial dissection took place. The specimen was palpated. The closest margin seemed to be anteriorly. This was right underneath the skin. The specimen was painted the appropriate 6 colors and sent to radiology to assess clip placement. Both areas were then irrigated with saline. Clips were used to delineate the lumpectomy cavity. Gelfoam powder was used in both sites. A drain was placed in the axilla exiting inferiorly and sutured to the skin using a 3-0 silk stitch. The lumpectomy site was closed to the degree that we were able to using interrupted 2-0 Vicryl sutures. The subcutaneous tissues were closed using 3-0 Vicryl sutures. The skin was closed using a running 4-0 Monocryl stitch. Skin glue was then applied. DISPOSITION: Stable to recovery room
[2023-09-23] MEDS: HYDROmorphone 0.5 MG/0.5 ML SYRINGE IVP PRN ×2 (14:22→14:45)
[2023-09-23] MEDS ORDERED: LACTATED RINGERS 1,000 ML IV ONE ×2 (15:02)
[2023-09-23 15:11] LABS: Glucose,Whole Blood 183 mg/dL (70-110)
[2023-09-23] MEDS ORDERED: HYDROmorphone 1 MG/ML 1 ML SYRINGE IVP PRN (15:12)
[2023-09-23] MEDS ORDERED: ACETAMINOPHEN TAB 325 MG TAB PO PRN (15:12)
[2023-09-23] MEDS ORDERED: NALOXONE 0.4 MG/ML 1 ML VIAL IV PRN (15:12)
[2023-09-23] MEDS ORDERED: traMADol 50 MG TAB PO PRN (15:12)
[2023-09-23] MEDS ORDERED: ONDANSETRON 4 MG/2 ML VIAL IVP PRN (15:12)
[2023-09-23] MEDS ORDERED: INSULIN ASPART (NovoLOG) 100 UNIT/ML VIAL SQ ONE (15:27)
[2023-09-23] MEDS ORDERED: DEXTROSE 50% SYRINGE 50 ML IVP PRN ×2 (16:16)
[2023-09-23 17:09] LABS: Glucose,Whole Blood 176 mg/dL (70-110)
[2023-09-23] MEDS: HEPARIN SODIUM,PORCINE 5,000 UNIT/ML 1 ML VIAL SQ SCH (17:15)
[2023-09-23] MEDS: INSULIN ASPART (NovoLOG) 100 UNIT/ML VIAL SQ SCH ×2 (17:16→20:55)
[2023-09-23 19:34] VITALS: TEMP 98.3
[2023-09-23 20:26] LABS: Glucose,Whole Blood 290 mg/dL (70-110)
[2023-09-23] MEDS: FAMOTIDINE 20 MG TAB PO SCH (20:55)
[2023-09-23] MEDS ORDERED: CYCLOBENZAPRINE 10 MG TAB PO SCH (21:15)
[2023-09-23] MEDS ORDERED: PRAVASTATIN SODIUM 20 MG TAB PO SCH (21:15)
[2023-09-23] MEDS: GABAPENTIN 300 MG CAP PO SCH (21:48)
[2023-09-23] MEDS: HYDROcodone/APAP 5-325MG 1 EACH TAB PO PRN (21:48)
[2023-09-24] MEDS: HEPARIN SODIUM,PORCINE 5,000 UNIT/ML 1 ML VIAL SQ SCH ×2 (02:39→08:25)
[2023-09-24 03:33] VITALS: BP 129/67; PULSE 65
[2023-09-24] MEDS: LACTATED RINGERS 1,000 ML IV SCH (05:52)
[2023-09-24 06:07] LABS: Glucose,Whole Blood 219 mg/dL (70-110)
[2023-09-24] MEDS: INSULIN ASPART (NovoLOG) 100 UNIT/ML VIAL SQ SCH (06:40)
[2023-09-24] MEDS ORDERED: INSULIN DETEMIR (LEVEMIR) 100 UNIT/ML SYR SQ SCH (07:00)
[2023-09-24] MEDS: GABAPENTIN 300 MG CAP PO SCH (08:25)
[2023-09-24] MEDS: FAMOTIDINE 20 MG TAB PO SCH (08:25)
[2023-09-24] MEDS ORDERED: FUROSEMIDE 20 MG TAB PO SCH (09:00)
[2023-09-24] MEDS ORDERED: FOLIC ACID 1 MG TAB PO SCH (09:00)
[2023-09-24] MEDS ORDERED: LISINOPRIL-HCTZ 20-12.5 MG 1 EACH TAB PO SCH (09:00)
[2023-09-24] MEDS ORDERED: ESCITALOPRAM 10 MG TAB PO SCH (09:00)
[2023-09-24] MEDS ORDERED: amLODIPine 5 MG TAB PO SCH (09:00)
--- NOTE | 2023-09-24 09:48 | P.PN ---
Progress Note - Text Progress Note Date: 09/24/23 Doing well no complaints wound cdi. OK for dc.
[2023-09-24] MEDS: HYDROcodone/APAP 5-325MG 1 EACH TAB PO PRN (10:21)
--- NOTE | 2023-09-24 11:33 | P.PN ---
Progress Note - Text Progress Note Date: 09/24/23 (Patient is status post lumpectomy and axillary node dissection. Mild pain reported. Wounds are clean dry and intact. Patient ready for discharge. Follow-up with Dr. Monroy in 1 week.
--- NOTE | 2023-09-24 17:25 | P.CONS ---
History of Present Illness - Reason for Consult Consult date: 09/24/23 Medical management - Chief Complaint Right breast cancer - History of Present Illness 73-year-old female seen today for elective surgery for her recently diagnosed right breast cancer. Patient found to have a 2.7 cm upper outer quadrant mass right breast high-grade invasive ductal carcinoma. She is ER/[place] positive, HER- 2/cristina negative. She had multiple lymph nodes also seen in the right axilla on CAT scan the largest of which showed metastatic disease. Patient had an Oncotype BX core of 34 and oncology has plans for adjuvant chemotherapy. After discussion with oncology and the patient decision has been made to proceed with upfront surgery rather than neoadjuvant treatment. Review of Systems REVIEW OF SYSTEMS: CONSTITUTIONAL: No fever, no malaise, no fatigue. HEENT: No recent visual problems or hearing problems. Denied any sore throat. CARDIOVASCULAR: No chest pain, orthopnea, PND, no palpitations, no syncope. PULMONARY: No shortness of breath, no cough, no hemoptysis. GASTROINTESTINAL: No diarrhea, no nausea, no vomiting, no abdominal pain. NEUROLOGICAL: No headaches, no weakness, no numbness. HEMATOLOGICAL: Denies any bleeding or petechiae. GENITOURINARY: Denies any burning micturition, frequency, or urgency. MUSCULOSKELETAL/RHEUMATOLOGICAL: Denies any joint pain, swelling, or any muscle pain. ENDOCRINE: Denies any polyuria or polydipsia. The rest of the 14-point review of systems is negative. Past Medical History Past Medical History: Cancer, Diabetes Mellitus, Hyperlipidemia, Hypertension, Osteoarthritis (OA) Additional Past Medical History / Comment(s): Neuropathy in hands and feet, back pain, macular edema, gout, carpal tunnel bilateral. 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 ago, never a consistent smoker, was just very occasional Past Drug Use History: None Reported - Past Family History Sister(s) Family Medical History: Cancer Additional Family Medical History / Comment(s): skin Father Family Medical History: Cancer Additional Family Medical History / Comment(s): skin Medications and Allergies Home Medications Medication Instructions Recorded Confirmed Type Acetaminophen [Tylenol Extra 1,500 mg PO Q6H PRN 11/20/19 09/23/23 History Strength] Cyclobenzaprine [Flexeril] 10 mg PO HS 11/20/19 09/23/23 History Escitalopram [Lexapro] 10 mg PO DAILY 11/20/19 09/23/23 History Furosemide [Lasix] 20 mg PO DAILY 11/20/19 09/23/23 History Gabapentin [Neurontin] 300 mg PO TID 11/20/19 09/23/23 History Insulin Glargine [Lantus Vial] 140 unit SQ DAILY 11/20/19 09/23/23 History Lisinopril-Hctz 20-12.5 mg 1 tab PO DAILY 11/20/19 09/23/23 History [Zestoretic 20-12.5] Pravastatin Sodium [Pravachol] 20 mg PO HS 11/20/19 09/23/23 History amLODIPine [Norvasc] 5 mg PO DAILY 07/23/20 09/23/23 History Aspirin [Adult Low Dose Aspirin EC] 81 mg PO BID #60 tablet. 07/29/20 09/23/23 Rx Folic Acid 0.4 mg PO DAILY 08/10/23 09/23/23 History metHOTREXate sodium 20 mg PO DAILY 08/10/23 09/23/23 History INSULIN LISPRO (HumaLOG) [humaLOG] 0 units SQ DIRECTED 09/20/23 09/23/23 History Unk Vitamin B12 Shot 1 injection SQ Q30D 09/20/23 09/23/23 History Allergies Allergy/AdvReac Type Severity Reaction Status Date / Time celecoxib [From Celebrex] Allergy fluid Verified 09/23/23 08:24 retention Physical Exam Vitals: Vital Signs Temp Pulse Resp BP Pulse Ox 09/24/23 07:30 65 16 09/24/23 02:00 98.3 F 65 16 129/67 96 09/23/23 19:00 98.3 F 90 16 138/62 93 L 09/23/23 17:38 97.5 F L 84 16 115/53 93 L 09/23/23 15:35 68 16 132/74 94 L 09/23/23 15:15 69 16 130/61 94 L 09/23/23 15:00 63 16 132/69 97 09/23/23 14:45 68 16 133/72 99 09/23/23 14:30 72 16 140/64 98 09/23/23 14:15 73 16 143/62 94 L 09/23/23 14:00 97.6 F 79 16 136/69 96 09/23/23 13:35 76 16 162/70 94 L 09/23/23 13:20 97.9 F 63 14 170/76 99 Intake and Output 09/23/23 09/24/23 09/24/23 22:59 06:59 14:59 Intake Total 250 Balance 250 Intake: IV 250 Other: Voiding Method Toilet Toilet # Voids 1 1 - Constitutional General appearance: Present: average body habitus, cooperative, no acute dist ress - EENT Eyes: Present: anicteric sclerae, EOMI, PERRLA, normal appearance ENT: Present: hearing grossly normal, normal oropharynx Ears: bilateral: normal - Neck Neck: Present: normal ROM. Absent: lymphadenopathy, rigidity, thyromegaly Carotids: negative: bruit present Thyroid: bilateral: normal size, negative: enlarged, nodule - Respiratory Respiratory: bilateral: CTA, negative: rales, rhonchi, wheezing - Cardiovascular Rhythm: regular Heart sounds: normal: S1, S2 Abnormal Heart Sounds: Absent: systolic murmur, diastolic murmur - Gastrointestinal General gastrointestinal: Present: normal bowel sounds, soft. Absent: distended, organomegaly, tenderness - Genitourinary Genitourinary Comment(s): deferred - Integumentary Integumentary: Present: normal turgor. Absent: jaundiced, rash, ulcer - Neurologic Neurologic: Present: CNII-XII intact. Absent: focal deficits - Musculoskeletal Musculoskeletal: Present: gait normal, strength equal bilaterally - Psychiatric Psychiatric: Present: A&O x's 3, appropriate affect, intact judgment & insight Results Labs: Abnormal Lab Results - Last 24 Hours (Table) 09/23/23 09/23/23 09/23/23 Range/Units 15:09 17:08 20:24 POC Glucose (mg/dL) 183 H 176 H 290 H (70-110) mg/dL 09/24/23 Range/Units 06:06 POC Glucose (mg/dL) 219 H (70-110) mg/dL Assessment and Plan Assessment: Right breast cancer; status post right breast wire localization lumpectomy, right axillary lymph node required localization with right axillary node dissection - POD #1 Hypertension Hyperlipidemia Diabetes mellitus with long-term insulin use Depression Osteoarthritis -- Patient has been cleared for discharge by surgery; recommended; home medications; postop care per surgery discretion
== END 2023-09-24 11:56 | disposition home health service (06) ==
LOC: OR 07:48 → 4SSUR 13:20 → OR 13:20
PROVIDERS: ATTEND Surgery
DX: C50.411 Malignant neoplasm of upper-outer quadrant of right female breast (principal); I10 Essential (primary) hypertension; E78.5 Hyperlipidemia, unspecified; M19.90 Unspecified osteoarthritis, unspecified site; E11.9 Type 2 diabetes mellitus without complications; Z85.3 Personal history of malignant neoplasm of breast; H35.81 Retinal edema; M10.9 Gout, unspecified; Z96.643 Presence of artificial hip joint, bilateral; Z98.890 Other specified postprocedural states; Z87.891 Personal history of nicotine dependence; Z80.8 Family history of malignant neoplasm of other organs or systems; Z79.4 Long term (current) use of insulin; Z79.82 Long term (current) use of aspirin; Z79.83 Long term (current) use of bisphosphonates; Z79.891 Long term (current) use of opiate analgesic; Z79.01 Long term (current) use of anticoagulants; Z79.1 Long term (current) use of non-steroidal anti-inflammatories (NSAID); Z79.899 Other long term (current) drug therapy; Z88.6 Allergy status to analgesic agent; Z17.0 Estrogen receptor positive status [ER+]
CPT/HCPCS: 19302; 83036; 77065; 76098; 19285; 19286; C1819; J1644 ×3; J1100; J0690; J2405; J2001; J1170

== ENCOUNTER 2023-10-21 09:31 | Emergency (ER) | payer MEDICARE ==
--- NOTE | 2023-10-21 11:09 | ED ---
Skin/Abscess/FB HPI - General Chief complaint: Recheck/Abnormal Lab/Rx Stated complaint: need a drain tube Time Seen by Provider: 10/21/23 10:13 Source: patient, RN notes reviewed Mode of arrival: ambulatory Limitations: no limitations - History of Present Illness Initial comments: This is a 73-year-old female who presents to the emergency department for right breast pain, redness, and swelling. She had a lumpectomy on 09/30/23 and had the drain tube removed 2 days ago. States that her breast was warm, red, and swollen when the drain was removed and she was started on Augmentin. However, the symptoms have not improved and she states that Dr. Zamudio instructed her to come in to the emergency department to have the drain put back in. Denies any fevers or chills. - Related Data Home Medications Medication Instructions Recorded Confirmed Acetaminophen [Tylenol Extra 1,500 mg PO Q6H PRN 11/20/19 09/23/23 Strength] Cyclobenzaprine [Flexeril] 10 mg PO HS 11/20/19 09/23/23 Escitalopram [Lexapro] 10 mg PO DAILY 11/20/19 09/23/23 Furosemide [Lasix] 20 mg PO DAILY 11/20/19 09/23/23 Gabapentin [Neurontin] 300 mg PO TID 11/20/19 09/23/23 Insulin Glargine [Lantus Vial] 140 unit SQ DAILY 11/20/19 09/23/23 Lisinopril-Hctz 20-12.5 mg 1 tab PO DAILY 11/20/19 09/23/23 [Zestoretic 20-12.5] Pravastatin Sodium [Pravachol] 20 mg PO HS 11/20/19 09/23/23 amLODIPine [Norvasc] 5 mg PO DAILY 07/23/20 09/23/23 Folic Acid 0.4 mg PO DAILY 08/10/23 09/23/23 metHOTREXate sodium 20 mg PO DAILY 08/10/23 09/23/23 INSULIN LISPRO (HumaLOG) [humaLOG] 0 units SQ DIRECTED 09/20/23 09/23/23 Unk Vitamin B12 Shot 1 injection SQ Q30D 09/20/23 09/23/23 Previous Rx's Medication Instructions Recorded Aspirin [Adult Low Dose Aspirin EC] 81 mg PO BID #60 tablet. 07/29/20 Allergies Allergy/AdvReac Type Severity Reaction Status Date / Time celecoxib [From Celebrex] Allergy fluid Verified 10/21/23 09:50 retention Review of Systems ROS Statement: Those systems with pertinent positive or pertinent negative responses have been documented in the HPI. ROS Other: All systems not noted in ROS Statement are negative. Past Medical History Past Medical History: Diabetes Mellitus, Hyperlipidemia, Hypertension, Osteoarthritis (OA) Additional Past Medical History / Comment(s): Neuropathy, back pain, macular edema, gout History of Any Multi-Drug Resistant Organisms: None Reported Past Surgical History: Breast Surgery Additional Past Surgical History / Comment(s): Carpal tunnel surgeries to jovana hands & cubital tunnel surg bilateral elbows, bilat hip replaced, jovana cataracts removed. 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 Absent: respiratory distress, wheezes, rales, rhonchi, stridor Cardiovascular Exam: Present: regular rate, normal rhythm, normal heart sounds. Absent: systolic murmur, diastolic murmur, rubs, gallop, clicks Neurological exam: Present: alert, oriented X3, CN II-XII intact Psychiatric exam: Present: normal affect, normal mood Skin exam: Present: other (Erythema, induration, tenderness, and warmth to the lateral aspect of the right breast.) Course Vital Signs 10/21/23 10/21/23 10/21/23 09:45 11:30 13:17 Temperature 98.4 F 98.7 F 99.3 F Pulse Rate 74 71 70 Pulse Rate [ Pulse Oximetery ] Respiratory 18 18 16 Rate Blood Pressure 153/65 150/66 153/67 Blood Pressure [Left Arm] O2 Sat by Pulse 97 97 97 Oximetry 10/21/23 10/21/23 10/21/23 14:00 14:30 15:00 Temperature Pulse Rate Pulse Rate [ 78 84 Pulse Oximetery ] Respiratory 16 16 16 Rate Blood Pressure Blood Pressure 168/95 152/85 150/87 [Left Arm] O2 Sat by Pulse 98 98 97 Oximetry 10/21/23 10/21/23 15:15 18:00 Temperature 98.7 F 98.2 F Pulse Rate 70 72 Pulse Rate [ Pulse Oximetery ] Respiratory 18 18 Rate Blood Pressure 127/67 135/81 Blood Pressure [Left Arm] O2 Sat by Pulse 100 100 Oximetry Medical Decision Making - Medical Decision Making This is a 73-year-old female who presents to the emergency department for pain and redness to the right breast. Was pt. sent in by a medical professional or institution? @ -Dr. Zamudio Did you speak to anyone other than the patient for history? @ -No Did you review nursing and triage notes? @ -Yes, and I agree, it is accurate with regards to the patient's symptoms. Were old charts reviewed? @ -No Differential Diagnosis? @ -Infection, inflammation, seroma, this is not meant to be an all-inclusive list. EKG interpreted by me (3pts min.)? @ -Not obtained X-rays interpreted by me (1pt min.)? @ -Not obtained CT interpreted by me (1pt min.)? @ -Not obtained U/S interpreted by me (1pt. min.)? @ -Not obtained What testing was considered but not performed? (CT, X-rays, U/S, labs)? Why? @ -None What meds were considered but not given? Why? @ -None Did you discuss the management of the patient with other professionals? @ -Yes, Dr. Zamudio, who advised seeing if IR could place an ultrasound-guided drain, and if she had largely serous drainage output with improvement in symptoms, she could be discharged home afterwards. Did you reconcile home meds? @ -No Was smoking cessation discussed for >3mins.? @ -No Was critical care preformed (if so, how long)? @ -No Were there social determinants of health that impacted care today? How? (Homelessness, low income, unemployed, alcoholism, drug addiction, transportation, low edu. Level, literacy, decrease access to med. care, intermediate, rehab)? @ -No Was there de-escalation of care discussed even if they declined? (Discuss DNR or withdrawal of care, Hospice)? @ -No What co-morbidities impacted this encounter? (DM, HTN, Smoking, COPD, CAD, Cancer, CVA, Hep., AIDS, mental health diagnosis, sleep apnea, morbid obesity)? @ -Breast cancer Was patient admitted / discharged? @ -Discharged. Lab work obtained demonstrating mild leukocytosis and an elevation in CRP. Case discussed with Dr. Zamudio, who advised seeing if interventional radiology could place an ultrasound-guided drain. This was discussed with the radiology nurse. A consult was placed and they took the patient to the interventional radiology suite. They were able to place the ultrasound guided drain in the right breast. On review of radiology documentation, they were able to drain approximately 45 mL of purulent calix material. This was sent for culture. When I went to reevaluate the patient, states that she did have improvement in symptoms. At the time of evaluation, her drainage was essentially serous fluid as opposed to any purulent material. She was given a dose of Vancomycin and Kefzol in the emergency department. Dr. Zamudio discussed admission vs discharge home with the patient, and the patient preferred discharge. Given that this was largely serous fluid and the patient's symptoms were well controlled, Dr. Zamudio was agreeable to this and she was discharged home in stable condition. Instructed the patient to continue taking the Augmentin and to follow up with Dr. Zamudio. Undiagnosed new problem with uncertain prognosis? @ -None Drug Therapy requiring intensive monitoring for toxicity (Heparin, Nitro, Insulin, Cardizem)? @ -None Were any procedures done? @ -None Diagnosis/symptom? @ -Right breast infection Acute, or Chronic, or Acute on Chronic? @ -Acute Uncomplicated (without systemic symptoms) or Complicated (systemic symptoms)? @ -Uncomplicated Side effects of treatment? @ -None Exacerbation, Progression, or Severe Exacerbation] @ -Not applicable Poses a threat to life or bodily function? @ -No Return precautions reviewed in depth, the patient is instructed to return to the emergency department with any new, worsening, or concerning symptoms. Patient verbalized understanding. This case was discussed in detail with the attending ED physician, Dr. Bland. Presentation, findings, and treatment plan discussed in detail as well. - Lab Data Result diagrams: 10/21/23 11:10 10/21/23 11:10 Lab Results 12/08/23 12/08/23 12/08/23 Range/Units 11:10 11:10 11:10 WBC 11.8 H (3.8-10.6) k/uL RBC 3.99 (3.80-5.40) m/uL Hgb 12.3 (11.4-16.0) gm/dL Hct 39.0 (34.0-46.0) % MCV 97.8 (80.0-100.0) fL MCH 30.8 (25.0-35.0) pg MCHC 31.4 (31.0-37.0) g/dL RDW 12.3 (11.5-15.5) % Plt Count 357 (150-450) k/uL MPV 7.8 Neutrophils % 76 % Lymphocytes % 16 % Monocytes % 4 % Eosinophils % 2 % Basophils % 0 % Neutrophils # 8.9 H (1.3-7.7) k/uL Lymphocytes # 1.9 (1.0-4.8) k/uL Monocytes # 0.5 (0-1.0) k/uL Eosinophils # 0.2 (0-0.7) k/uL Basophils # 0.0 (0-0.2) k/uL PT (10.0-12.5) sec INR (<1.2) Sodium 139 (137-145) mmol/L Potassium 4.6 (3.5-5.1) mmol/L Chloride 102 (98-107) mmol/L Carbon Dioxide 25 (22-30) mmol/L Anion Gap 12 mmol/L BUN 25 H (7-17) mg/dL Creatinine 0.63 (0.52-1.04) mg/dL Est GFR (CKD-EPI)AfAm >90 (>60 ml/min/1.73 sqM) Est GFR (CKD-EPI)NonAf >90 (>60 ml/min/1.73 sqM) Glucose 104 H (74-99) mg/dL Plasma Lactic Acid Justice 1.3 (0.7-2.0) mmol/L Calcium 8.9 (8.4-10.2) mg/dL Total Bilirubin 0.5 (0.2-1.3) mg/dL AST 19 (14-36) U/L ALT 20 (4-34) U/L Alkaline Phosphatase 83 (38-126) U/L C-Reactive Protein 5.9 H (<1.0) mg/dL Total Protein 6.8 (6.3-8.2) g/dL Albumin 4.0 (3.5-5.0) g/dL 10/21/23 Range/Units 12:13 WBC (3.8-10.6) k/uL RBC (3.80-5.40) m/uL Hgb (11.4-16.0) gm/dL Hct (34.0-46.0) % MCV (80.0-100.0) fL MCH (25.0-35.0) pg MCHC (31.0-37.0) g/dL RDW (11.5-15.5) % Plt Count (150-450) k/uL MPV Neutrophils % % Lymphocytes % % Monocytes % % Eosinophils % % Basophils % % Neutrophils # (1.3-7.7) k/uL Lymphocytes # (1.0-4.8) k/uL Monocytes # (0-1.0) k/uL Eosinophils # (0-0.7) k/uL Basophils # (0-0.2) k/uL PT 10.4 (10.0-12.5) sec INR 0.9 (<1.2) Sodium (137-145) mmol/L Potassium (3.5-5.1) mmol/L Chloride (98-107) mmol/L Carbon Dioxide (22-30) mmol/L Anion Gap mmol/L BUN (7-17) mg/dL Creatinine (0.52-1.04) mg/dL Est GFR (CKD-EPI)AfAm (>60 ml/min/1.73 sqM) Est GFR (CKD-EPI)NonAf (>60 ml/min/1.73 sqM) Glucose (74-99) mg/dL Plasma Lactic Acid Justice (0.7-2.0) mmol/L Calcium (8.4-10.2) mg/dL Total Bilirubin (0.2-1.3) mg/dL AST (14-36) U/L ALT (4-34) U/L Alkaline Phosphatase (38-126) U/L C-Reactive Protein (<1.0) mg/dL Total Protein (6.3-8.2) g/dL Albumin (3.5-5.0) g/dL Disposition Clinical Impression: Infection of right breast Disposition: HOME SELF-CARE Additional Instructions: Return to the emergency department with any new, worsening, or concerning symptoms. Take Tylenol as needed for pain relief. Follow-up with Dr. Zamudio. Is patient prescribed a controlled substance at d/c from ED?: No Referrals: Tomas Marquez MD [Primary Care Provider] - 1-2 days
[2023-10-21 11:44] LABS: Basophils % (A) 0 %; Eosinophils # (A) 0.2 k/uL (0-0.7); Eosinophils % (A) 2 %; HGB 12.3 gm/dL (11.4-16.0); Lymphocytes # (A) 1.9 k/uL (1.0-4.8); Lymphocytes % (A) 16 %; MCH 30.8 pg (25.0-35.0); MCHC 31.4 g/dL (31.0-37.0); MCV 97.8 fL (80.0-100.0); Mean Platelet Volume 7.8; Monocytes # (A) 0.5 k/uL (0-1.0); Monocytes % (A) 4 %; Neutrophils # (A) 8.9 k/uL (1.3-7.7); Neutrophils % (A) 76 %; Platelet Count 357 k/uL (150-450); RBC 3.99 m/uL (3.80-5.40); RDW 12.3 % (11.5-15.5); WBC 11.8 k/uL (3.8-10.6)
[2023-10-21 12:07] LABS: ALT 20 U/L (4-34); AST 19 U/L (14-36); African American GFR (CKD) >90 (>60 ml/min/1.73 sqM); Alkaline Phosphatase 83 U/L (38-126); Anion Gap 12 mmol/L; Blood Urea Nitrogen 25 mg/dL (7-17); C Reactive Protein 5.9 mg/dL (<1.0); Calcium 8.9 mg/dL (8.4-10.2); Carbon Dioxide 25 mmol/L (22-30); Chloride 102 mmol/L (98-107); Glucose 104 mg/dL (74-99); Non-African American GFR(CKD) >90 (>60 ml/min/1.73 sqM); Potassium 4.6 mmol/L (3.5-5.1); Sodium 139 mmol/L (137-145); Total Bilirubin 0.5 mg/dL (0.2-1.3); Total Protein 6.8 g/dL (6.3-8.2)
[2023-10-21 12:43] LABS: INR 0.9 (<1.2); Prothrombin Time 10.4 sec (10.0-12.5)
--- NOTE | 2023-10-21 12:53 | USB ---
Reason for Exam: Clinical finding. Patient History: Menarche at age 20. First Full-Term at age 25. Hysterectomy at age 37. Postmenopausal. Breast cancer, right, age 73. Breast cancer, right, age 73. 09/23/2023, Lumpectomy on the Right side. 09/23/2023, Malignant US breast localization RT on the right side. 08/15/2023, US biopsy breast VAD RT on the Right side. 08/15/2023, Malignant US breast needle core RT on the right side. Technique: Method: Targeted. Prior Study Comparison: 07/29/2023 Bilateral MG 3D screening mammo w/cad, [facility]. 08/15/2023 Right MG diagnostic mammo RT wo CAD, [facility]. 09/23/2023 Right MG diagnostic mammo RT wo CAD, LOC[facility]IN [facility]. Findings: The upper section of the breast of the right breast was scanned. Targeted scanning at the patient's site of pain and redness right breast 10:00 position, 7 cm from the nipple. There is a large complex collection with induration of the surrounding tissues. The collection measures up to 6.7 x 6.2 x 2.9 cm. Overall Assessment: Suspicious, BI-RAD 4 Management: Surgical Consultation of the right breast. For breast abscess/infected seroma. Aspiration recommended with follow-up ultrasound in 4-6 weeks to reassess. Results were given to the patient verbally at the time of exam. Electronically signed and approved by: Mary Bautista M.D. Radiologist
[2023-10-21] MEDS ORDERED: VANCOMYCIN IV PER PHARMACY 1 EACH MISC MISCELLANE PRN (12:55)
[2023-10-21] MEDS ORDERED: VANCOMYCIN 1,500 MG in SODIUM CHLORIDE 0.9% 500 ML 500 ML IVPB STA (12:59)
--- NOTE | 2023-10-21 13:00 | P.PN ---
Progress Note - Text Progress Note Date: 10/21/23 Patient was sent to the ER after: My office this morning with increasing swelling and pain at the recent lumpectomy site. Her drain was removed 2 days ago and there was some mild redness there. We were concerned that she might develop a seroma. I believe that his the majority of her symptoms. White blood cell count mildly elevated. There is erythema at the inferior aspect of the incision site. There is now some fluctuance likely related to seroma. This may be infected. We'll provide dose of IV antibiotics. She is already on Augmentin as outpatient. She does not want to stay in the hospital unless absolutely necessary. We'll proceed with percutaneous drain placement. As long as the fluid appears mostly serous Will discharge home with drain in place. Follow-up one week.
[2023-10-21 15:50] VITALS: RESP 18
[2023-10-21] MEDS ORDERED: MORPHINE SULFATE 4 MG/ML SYRINGE IVP STA (17:03)
[2023-10-21] MEDS ORDERED: ACET/COD 300 MG/30 MG STARTER PACK 6 TAB BTL PO STA (17:53)
[2023-10-21 18:31] VITALS: BP 135/81; PULSE 72; TEMP 98.2
[2023-10-22] MEDS ORDERED: VANCOMYCIN 1,500 MG in SODIUM CHLORIDE 0.9% 500 ML 500 ML IVPB SCH (09:00)
--- NOTE | 2023-10-24 08:50 | US ---
ULTRASOUND GUIDED RIGHT BREAST SEROMA DRAINAGE CATHETER INSERTION: CLINICAL HISTORY: Postoperative right breast seroma FINDINGS: The procedure was explained to the patient. The risks, complications, benefits and alternatives were discussed and any questions were answered. Informed consent was obtained. Patient was placed supin e on the ultrasound table and prepped and draped in the usual sterile fashion. Utilizing a needle tr ocar system and direct ultrasound guidance access to the fluid collection within the right breast was achieved and there is placement of an 8 Spanish drainage catheter. Imaging demonstrated the placement . Patient was stable throughout the procedure. All elements of maximal barrier and sterile technique were utilized. IMPRESSION: 1. Successful ultrasound guided right breast subcutaneous seroma drainage catheter insertion..
== END 2023-10-21 18:37 | disposition home or self-care (01) ==
LOC: EC 09:31
DX: N61.0 Mastitis without abscess (principal); E11.9 Type 2 diabetes mellitus without complications; I10 Essential (primary) hypertension; E78.5 Hyperlipidemia, unspecified; F32.A Depression, unspecified; M19.90 Unspecified osteoarthritis, unspecified site; Z79.4 Long term (current) use of insulin; Z79.899 Other long term (current) drug therapy; Z88.8 Allergy status to other drugs, medicaments and biological substances; Z79.1 Long term (current) use of non-steroidal anti-inflammatories (NSAID)
CPT/HCPCS: 36415; 80053; 83605; 85025; 85610; 86140; 87070; 87205; 87075; 87077; 87186; 76942; 10030; 76642; 99284; 96365; 96366 ×3; 96368; 96375; J3370; J2270; J0690

== ENCOUNTER → 2023-10-31 | Outpatient (CLI) | payer MEDICARE ==
--- NOTE | 2023-11-01 07:43 | CA ---
Transthoracic Echo Report Name: Ruth Sommers Age: 73 Gender: F : 1950 Exam Date: 10/31/2023 11:03 Exam Location: [facility] Ht (in): 61 Wt (lb): 170 Ordering Physician: Tomas Marquez MD Attending/Referring Phys: Pipe Cutter Nilda Duong RDCS Procedure CPT: Indications: Z01.818 Chemo Cardiac Hx: Technical Quality: Fair Contrast 1: Total Dose (mL): Contrast 2: Total Dose (mL): MEASUREMENTS (Male / Female) Normal Values 2D ECHO LV Diastolic Diameter PLAX 4.1 cm 4.2 - 5.9 / 3.9 - 5.3 cm LV Systolic Diameter PLAX 3.1 cm IVS Diastolic Thickness 1.6 cm 0.6 - 1.0 / 0.6 - 0.9 cm LVPW Diastolic Thickness 1.7 cm 0.6 - 1.0 / 0.6 - 0.9 cm LV Relative Wall Thickness 0.8 RV Internal Dim ED PLAX 2.9 cm M-MODE Aortic Root Diameter MM 2.4 cm LA Systolic Diameter MM 4.3 cm LA Ao Ratio MM 1.8 AV Cusp Separation MM 0.0 cm DOPPLER AV Peak Velocity 133.6 cm/s AV Peak Gradient 7.1 mmHg AV Mean Velocity 96.5 cm/s AV Mean Gradient 4.1 mmHg AV Velocity Time Integral 29.8 cm LVOT Peak Velocity 101.1 cm/s LVOT Peak Gradient 4.1 mmHg LVOT Velocity Time Integral 20.6 cm Mitral E Point Velocity 56.1 cm/s Mitral A Point Velocity 57.0 cm/s Mitral E to A Ratio 1.0 MV Deceleration Time 163.8 ms MV E' Velocity 5.1 cm/s Mitral E to MV E' Ratio 11.1 FINDINGS Left Ventricle Moderately increased left ventricular wall thickness. Left ventricular cavity size normal. Normal left ventricular systolic function with no obvious regional wall motion abnormalities. Left ventricular ejection fraction is estimated at 55-60%. Right Ventricle Normal right ventricular size and function. Right ventricular systolic pressure within normal limits. Right Atrium Normal right atrial size. Left Atrium Normal left atrial size. Mitral Valve Structurally normal mitral valve. Mild mitral annular calcification. No mitral stenosis. No mitral regurgitation. Aortic Valve Trileaflet aortic valve. No aortic valve stenosis or regurgitation. Tricuspid Valve Structurally normal tricuspid valve. Pulmonic Valve Pulmonic valve not well visualized. Pericardium No pericardial effusion. Aorta Normal size aortic root and proximal ascending aorta. CONCLUSIONS 1. Normal left ventricular size and systolic function 2. No significant valvular abnormalities Previewed by: Dr. Adolfo Diaz MD (Electronically Signed) Final Date: 01 November 2023 07:42
== END | disposition home or self-care (01) ==
LOC: RADECHMAIN 10:50
PROVIDERS: ATTEND Internal Medicine
DX: Z01.818 Encounter for other preprocedural examination (principal); C50.411 Malignant neoplasm of upper-outer quadrant of right female breast; D50.0 Iron deficiency anemia secondary to blood loss (chronic); D51.8 Other vitamin B12 deficiency anemias
CPT/HCPCS: 93306

== ENCOUNTER 2023-11-11 06:08 | Day surgery (SDC) | payer MEDICARE ==
[2023-11-08 12:39] VITALS: BMI 33.4
[~2023-11-11 06:08] MED LIST changes: -DEXAMETHASONE SOD PHOSPHATE 4 MG/ML 1 ML VIAL IV ONE; +HEPARIN SODIUM,PORCINE 5,000 UNIT/ML 1 ML VIAL SQ PRN; -HEPARIN SODIUM,PORCINE/PF 5,000 UNIT/0.5 ML SYRINGE SQ PRN; -MIDAZOLAM 2 MG/2 ML VIAL IV PRN; -ONDANSETRON 4 MG/2 ML VIAL IVP ONE; +Pre Op ABX Message 1 EACH MISC MISCELLANE ONE
[2023-11-11] MEDS ORDERED: ONDANSETRON 4 MG/2 ML VIAL IVP ONE (06:09)
[2023-11-11] MEDS ORDERED: DEXAMETHASONE SOD PHOSPHATE 4 MG/ML 1 ML VIAL IV ONE (06:09)
[2023-11-11] MEDS ORDERED: HYDROmorphone 0.5 MG/0.5 ML SYRINGE IVP PRN (07:00)
[2023-11-11] MEDS ORDERED: MIDAZOLAM 2 MG/2 ML VIAL IV PRN (07:00)
[2023-11-11 07:13] LABS: Glucose,Whole Blood 123 mg/dL (70-110)
[2023-11-11] MEDS: LACTATED RINGERS 1,000 ML IV SCH ×2 (07:13→07:26)
[2023-11-11] MEDS ORDERED: PROPOFOL 10 MG/ML 20 ML VIAL IV ONE (07:23)
[2023-11-11] MEDS ORDERED: ePHEDrine 50 MG/ML 1 ML VIAL ONE (07:23)
[2023-11-11] MEDS ORDERED: MIDAZOLAM 2 MG/2 ML VIAL ONE (07:23)
[2023-11-11] MEDS ORDERED: KETOROLAC 15 MG/ML 1 ML VIAL ONE (07:23)
[2023-11-11] MEDS ORDERED: fentaNYL (PF) 50 MCG/ML 2 ML AMP ONE (07:23)
[2023-11-11] MEDS ORDERED: LIDOCAINE 1% INJ 10MG/ML (20 ML MDV) ONE (07:23)
[2023-11-11] MEDS ORDERED: PHENYLEPHRINE-0.9% NACL SYG 1,000 MCG/10 ML SYRINGE ONE (07:23)
[2023-11-11] MEDS ORDERED: HEPARIN SODIUM,PORCINE 100 UNIT/ML 5 ML VIAL IV ONE (07:43)
[2023-11-11] MEDS ORDERED: LIDOCAINE 1% INJ 10MG/ML (20 ML MDV) SQ ONE ×2 (07:43)
[2023-11-11] MEDS ORDERED: SODIUM CHLORIDE 0.9% 50 ML with ceFAZolin 2,000 MG IV ONE ×4 (07:49)
[2023-11-11] MEDS ORDERED: NALOXONE 0.4 MG/ML 1 ML VIAL IV PRN (08:41)
[2023-11-11] MEDS ORDERED: HYDROcodone/APAP 5-325MG 1 EACH TAB PO PRN (08:41)
[2023-11-11 08:42] VITALS: TEMP 96.8
--- NOTE | 2023-11-11 08:44 | P.OP ---
Date of Procedure: 11/11/23 Procedure(s) Performed: PREOPERATIVE DIAGNOSIS: Right breast cancer POSTOPERATIVE DIAGNOSIS: Same PROCEDURE: Port-A-Cath placement with fluoroscopic and ultrasound guidance SURGEON: Robb EBL: Minimal ANESTHESIA: General COMPLICATIONS: None OPERATIVE PROCEDURE: Patient was brought and placed on the operative table in the supine position. The patient was placed under general anesthesia at that time. The chest and neck were prepped and draped in usual sterile fashion. The ultrasound probe was used to identify the location of the left internal jugular vein. The skin was localized with lidocaine. The Seldinger needle was advanced into the IJ under ultrasound guidance. The wire was advanced through the needle under fluoroscopic guidance into the superior vena cava. A port pocket was created in the left infraclavicular location. The catheter was tunneled from the wire entrance site to the port pocket. The port was then connected to the catheter. The dilator introducer was threaded over the guidewire. The guidewire and dilator were then removed. The catheter was advanced through the introducer and introducer was then removed. The tip was seen to be in the right atrial junction via fluoroscopy. A picture of the radiograph showing the tip of the catheter was taken. Port was flushed with both saline and a Hep-Lock solution. There was good flow both in and out of the port. The port was sutured in underlying tissues using 3-0 silk sutures. The subcutaneous tissues were reapproximated using 3-0 Vicryl sutures and the skin at both locations using 4-0 Monocryl sutures. Skin glue and sterile dressings then applied. DISPOSITION: Stable to recovery room
--- NOTE | 2023-11-11 09:02 | FL ---
EXAMINATION TYPE: FL guided central line placemt Intraoperative/procedural fluoroscopic services were provided. Total fluoroscopy time is 8.3 seconds with a total of 1 submitted images to PACS. Please s ee the operative/procedural note for further details. DAP: 0.5919 Gycm2
[2023-11-11 09:14] LABS: Glucose,Whole Blood 138 mg/dL (70-110)
[2023-11-11 09:30] VITALS: RESP 16
--- NOTE | 2023-11-11 09:49 | XR ---
EXAMINATION TYPE: XR chest 1V confirm line [facility] DATE OF EXAM: 11/11/2023 COMPARISON: NONE HISTORY: 73-year-old female check line placement TECHNIQUE: Single frontal view of the chest is obtained. FINDINGS: Left anterior chest wall injection port with catheter tip at the right atrium. Heart mildl y enlarged. Mild interstitial prominence has a chronic appearance. No consolidation, pneumothorax, or pleural effusion. Surgical clips right axilla. IMPRESSION: 1. Left anterior chest wall injection port. Catheter tip within the right atrium. 2. Mild cardiomegaly. No acute process otherwise seen.
[2023-11-11 10:19] VITALS: BP 136/68; PULSE 76
== END 2023-11-11 10:36 | disposition home or self-care (01) ==
LOC: OR 06:08
PROVIDERS: ATTEND Surgery
DX: Z45.2 Encounter for adjustment and management of vascular access device (principal); I51.7 Cardiomegaly; Z85.3 Personal history of malignant neoplasm of breast
CPT/HCPCS: 84132; 77001; 36561; C1788; J2250; J1644; J1642; J1100; J2405; J0690; J2001; J3010; J1885; J2704; J2371

== ENCOUNTER → 2023-12-22 | Outpatient (CLI) | payer MEDICARE ==
--- NOTE | 2023-12-22 14:34 | XR ---
EXAMINATION TYPE: XR foot complete LT DATE OF EXAM: 12/22/2023 COMPARISON: NONE HISTORY: Pain, blisters TECHNIQUE: Three views are submitted. FINDINGS: There is severe arthropathy of the DIP joint first digit with erosive changes. Moderate to severe hyp ertrophic arthropathy first MTP. Tiny spur involving the base of the fifth metatarsal. There is moder ate size calcaneal spurs. Vascular calcifications. Soft tissue edema but no evidence to suggest destr uctive changes\osteomyelitis. IMPRESSION: 1. Soft tissue edema but no diagnostic evidence of osteomyelitis. 2. Irregular arthropathy of the distal phalanx first digit. Would consider erosive arthropathy in the differential diagnosis. Although, infection not excluded felt less likely.
== END | disposition home or self-care (01) ==
LOC: RADXRMAIN 13:55
PROVIDERS: ATTEND Internal Medicine
DX: C50.411 Malignant neoplasm of upper-outer quadrant of right female breast (principal); D50.0 Iron deficiency anemia secondary to blood loss (chronic); D51.8 Other vitamin B12 deficiency anemias; R60.0 Localized edema; M19.012 Primary osteoarthritis, left shoulder

== ENCOUNTER → 2024-03-02 | Outpatient (CLI) | payer MEDICARE ==
[2024-03-02 16:31] LABS: HCT 34.2 % (37.2-46.3); HGB 10.4 g/dL (12.0-15.0); MCH 30.2 pg (27.0-32.0); MCHC 30.4 g/dL (32.0-37.0); MCV 99.4 FL (80.0-97.0); NRBC Per 100 WBC 0 X 10*3/uL (0.00-0.01); Platelet Count 251 X 10*3/uL (140-440); RBC 3.44 X 10*6/uL (4.10-5.20); RDW 14.4 % (11.5-14.5); WBC 6.15 X 10*3/uL (4.50-10.00)
[2024-03-02 16:40] LABS: BUN/Creat Ratio 27.12 Ratio (12.00-20.00); Blood Urea Nitrogen 21.7 mg/dL (9.0-27.0); Calcium 8.8 mg/dL (8.7-10.3); Carbon Dioxide 27.7 mmol/L (21.6-31.8); Chloride 103 mmol/L (96-109); Glucose 148 mg/dL (70-110); Potassium 4.6 mmol/L (3.5-5.5); Sodium 141 mmol/L (135-145)
== END | disposition home or self-care (01) ==
LOC: LABWHC1 11:39
PROVIDERS: ATTEND Internal Medicine Cardiovascular Disease
DX: D64.9 Anemia, unspecified (principal)
CPT/HCPCS: 36415; 80048; 85027

== ENCOUNTER → 2024-03-09 | Outpatient (CLI) | payer MEDICARE ==
[2024-03-09 18:49] LABS: HCT 35.6 % (37.2-46.3); HGB 10.9 g/dL (12.0-15.0); MCH 29.9 pg (27.0-32.0); MCHC 30.6 g/dL (32.0-37.0); MCV 97.8 FL (80.0-97.0); Mean Platelet Volume 10.3 FL (9.5-12.2); NRBC Per 100 WBC 0 X 10*3/uL (0.00-0.01); Platelet Count 240 X 10*3/uL (140-440); RBC 3.64 X 10*6/uL (4.10-5.20); RDW 13.8 % (11.5-14.5); WBC 7.16 X 10*3/uL (4.50-10.00)
[2024-03-09 20:01] LABS: BUN/Creat Ratio 22.67 Ratio (12.00-20.00); Blood Urea Nitrogen 20.4 mg/dL (9.0-27.0); Calcium 9.1 mg/dL (8.7-10.3); Chloride 100 mmol/L (96-109); Glucose 267 mg/dL (70-110); Potassium 4.7 mmol/L (3.5-5.5); Sodium 139 mmol/L (135-145)
== END | disposition home or self-care (01) ==
LOC: LABWHC1 15:03
PROVIDERS: ATTEND Internal Medicine Cardiovascular Disease
DX: Z00.00 Encounter for general adult medical examination without abnormal findings (principal)
CPT/HCPCS: 36415; 80048; 85027

== ENCOUNTER → 2024-06-08 | Outpatient (CLI) | payer MEDICARE ==
[2024-06-08 15:03] LABS: African American GFR (CKD) 44 (>60 ml/min/1.73 sqM); Blood Urea Nitrogen 57 mg/dL (7-17); Non-African American GFR(CKD) 38 (>60 ml/min/1.73 sqM)
== END | disposition home or self-care (01) ==
LOC: RADCTMAIN 14:00
PROVIDERS: ATTEND Internal Medicine
DX: C50.411 Malignant neoplasm of upper-outer quadrant of right female breast (principal); D50.0 Iron deficiency anemia secondary to blood loss (chronic); D51.8 Other vitamin B12 deficiency anemias
CPT/HCPCS: 82565; 84520

== ENCOUNTER → 2024-06-22 | Outpatient (CLI) | payer MEDICARE ==
--- NOTE | 2024-07-12 16:25 | CT ---
EXAMINATION TYPE: CT abdomen pelvis w0 con DATE OF EXAM: 06/22/2024 COMPARISON: 03/10/2023 INDICATION: Breast cancer, stomach tumor DLP: 629 mGycm, Automated exposure control for dose reduction was used. CONTRAST: 100 mL of Isovue 300. Study performed without Oral Contrast TECHNIQUE: Axial images were obtained from above the diaphragm to the pubic rami in the axial plane at 5 mm thick sections. Reconstructed images are reviewed on the computer in the coronal plane. FINDINGS: Limited CT sections are obtained the lung bases. A small to moderate pericardial effusion is present.. CT ABDOMEN: Postsurgical changes are within the stomach. No obvious mass is identified Liver: Normal Spleen: Normal Pancreas: Normal Adrenal glands: The adrenal glands are normal. Gallbladder: Normal Kidneys: No masses are evident. No hydronephrosis is present. No cysts are present. No renal stones are evident. There is some renal vascular calcifications present Aorta: Vascular calcification is within the aorta. Inferior vena cava: Normal. CT PELVIS: Loops of bowel within the abdomen and pelvis are normal. The study is without oral contrast limiting bowel evaluation. Appendix: Normal as visualized. Urinary bladder: Partially obscured by bilateral hip prostheses. Genitourinary structures: Uterus and ovaries are not identified. Osseous structures: No suspicious lytic or sclerotic lesions. No surgical changes are within the lumbar spine. IMPRESSION: 1. Postsurgical changes at the patient's previous gastric mass. No recurrent mass identified. 2. No suspicious changes for metastatic disease. MTDD
== END | disposition home or self-care (01) ==
LOC: RADCTMAIN 11:30
PROVIDERS: ATTEND Internal Medicine
DX: D50.0 Iron deficiency anemia secondary to blood loss (chronic) (principal); C50.411 Malignant neoplasm of upper-outer quadrant of right female breast
CPT/HCPCS: 74176

== ENCOUNTER → 2024-07-30 | Outpatient (CLI) | payer MEDICARE ==
--- NOTE | 2024-07-30 14:35 | MM ---
Reason for Exam: Hx of breast cancer, conservation therapy. Last screening mammogram was performed 12 month(s) ago. Patient History: Menarche at age 20. First Full-Term at age 25. Hysterectomy at age 37. Postmenopausal. Breast cancer, right, age 73. Breast cancer, right, age 73. Previous chemotherapy at age 73. 09/23/2023, Lumpectomy on the Right side. 09/23/2023, Malignant US breast localization RT on the right side. 08/15/2023, US biopsy breast VAD RT on the Right side. 08/15/2023, Malignant US breast needle core RT on the right side. Prior Study Comparison: 07/29/2023 Bilateral MG 3D screening mammo w/cad, [facility]. 08/15/2023 Right MG diagnostic mammo RT wo CAD, [facility]. 09/23/2023 Right MG diagnostic mammo RT wo CAD, [facility]. Tissue Density: The breasts are heterogeneously dense, which may obscure small masses. Findings: Analyzed By CAD. Postsurgical changes are within the upper outer posterior right breast. There is skin thickening through the right breast. Benign calcifications within the left breast appear stable from comparison. No suspicious groups of microcalcifications, spiculated or lobular masses, architectural distortion or other secondary signs of malignancy are mammographically apparent. Overall Assessment: Benign, BI-RAD 2 Management: Diagnostic Mammogram of both breasts in 1 year. A negative mammogram report should not preclude additional follow up of suspicious palpable abnormalities. Patient should continue monthly self breast exam. A clinical breast exam by your physician is recommended on an annual basis and results should be correlated with mammographic findings. Note on Maryam scores and lifetime risk: 1. A Maryam score greater than 3% is considered moderate risk. If this is the case, consider specialist referral to assess eligibility for a risk reducing agent. 2. If overall lifetime risk for the development of breast cancer is 20% or higher, the patient may qualify for future screening with alternating mammogram and breast MRI. [facility], , 07/30/2024 2:07 PM. Electronically signed and approved by: Andriy Crowe D.O. Radiologis
== END | disposition home or self-care (01) ==
LOC: RADMAMWWP 13:27
PROVIDERS: ATTEND Surgery
DX: Z85.3 Personal history of malignant neoplasm of breast
CPT/HCPCS: 77062; 77066

== ENCOUNTER 2025-05-30 19:01 | Observation (INO) | payer MEDICARE ==
--- NOTE | 2025-05-30 19:28 | ED ---
General Adult HPI - General Chief complaint: Chest Pain Stated complaint: chest and back pain Time Seen by Provider: 05/30/25 19:05 Source: patient, family, RN notes reviewed, old records reviewed Mode of arrival: wheelchair Limitations: no limitations - History of Present Illness Initial comments: This is a 74-year-old female who presents to the emergency department complaining of back and chest pain. Patient states she has a history of cardiac stents she has 6 done. Patient also has diabetes hypertension high cholesterol. Patient states an hour and a half prior to arrival she started experiencing some back pain and chest pain patient states she took 4 nitroglycerin and the pain went away. Patient states currently she has no pain. Patient denies any significant difficulty breathing. Patient Nuys any diaphoretic episode. Patient Nuys any nausea. Patient has abdominal pain. Patient denies any symptoms currently - Related Data Home Medications Medication Instructions Recorded Confirmed Cyclobenzaprine [Flexeril] 10 mg PO HS 11/20/19 01/09/24 Escitalopram [Lexapro] 10 mg PO DAILY 11/20/19 01/09/24 Gabapentin [Neurontin] 300 mg PO TID 11/20/19 01/09/24 Pravastatin Sodium [Pravachol] 20 mg PO HS 11/20/19 01/09/24 Aprepitant 80 mg PO DIRECTED 12/23/23 01/09/24 HYDROcodone/APAP 5-325MG [[place] 1 tab PO Q6HR PRN 12/23/23 01/09/24 5-325] Mupirocin 2% Oint [Bactroban 2% 1 applic TOPICAL TID 12/23/23 01/09/24 Oint] Ondansetron [Zofran] 4 - 8 mg PO Q4HR PRN 12/23/23 01/09/24 Folic Acid 0.8 mg PO DAILY 01/09/24 01/09/24 Insulin Glargine,Hum.rec.anlog 90 units SQ DAILY 01/09/24 01/09/24 [Lantus Solostar Pen] Insulin Lispro [humaLOG Kwikpen] See Protocol SQ ACHS 01/09/24 01/09/24 Previous Rx's Medication Instructions Recorded Dapagliflozin Propanediol [Farxiga] 10 mg PO DAILY #30 tab 01/16/24 Petrolat,White/Pako/8-Hydroxyqu 1 gm TOPICAL DAILY gm 01/16/24 [Bag Delia] Spironolactone [Aldactone] 25 mg PO DAILY #30 tab 01/16/24 Torsemide [Demadex] 20 mg PO DAILY #30 tab 01/16/24 carvediloL [Coreg] 6.25 mg PO BID-W/MEALS #60 tab 01/16/24 lisinopriL [Zestril] 20 mg PO DAILY #30 tab 01/16/24 Allergies Allergy/AdvReac Type Severity Reaction Status Date / Time celecoxib [From Celebrex] Allergy fluid Verified 01/09/24 11:28 retention Glqimsa-PHA-ZdX Reductase Allergy Swelling Verified 05/30/25 19:06 Inhibitor Review of Systems ROS Statement: Those systems with pertinent positive or pertinent negative responses have been documented in the HPI. ROS Other: All systems not noted in ROS Statement are negative. Past Medical History Past Medical History: Cancer, Diabetes Mellitus, Hyperlipidemia, Hypertension, Osteoarthritis (OA) Additional Past Medical History / Comment(s): Neuropathy, back pain, macular edema, gout History of Any Multi-Drug Resistant Organisms: None Reported Past Surgical History: Breast Surgery, Heart Catheterization With Stent Additional Past Surgical History / Comment(s): Carpal tunnel surgeries to jovana hands & cubital tunnel surg bilateral elbows, bilat hip replaced, jovana cataracts removed. 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 Father Family Medical History: Cancer Additional Family Medical History / Comment(s): Skin cancer. General Exam - General Exam Comments Initial Comments: GENERAL: Patient is well-developed and well-nourished. Patient is nontoxic and well- hydrated and is in no acute distress. ENT: Neck is soft and supple. No significant lymphadenopathy is noted. Oropharynx is clear. Moist mucous membranes. Neck has full range of motion without el iciting any pain. EYES: The sclera were anicteric and conjunctiva were pink and moist. Extraocular movements were intact and pupils were equal round and reactive to light. Eyelids were unremarkable. PULMONARY: Unlabored respirations. Good breath sounds bilaterally. No audible rales rhonchi or wheezing was noted. CARDIOVASCULAR: There is a regular rate and rhythm without any murmurs gallops or rubs. ABDOMEN: Soft and nontender with normal bowel sounds. SKIN: Skin is clear with no lesions or rashes and otherwise unremarkable. NEUROLOGIC: Patient is alert and oriented x3. Cranial nerves II through XII are grossly intact. Motor and sensory are also intact. Normal speech, volume and content. Symmetrical smile. MUSCULOSKELETAL: Normal extremities with adequate strength and full range of motion. No lower extremity swelling or edema. No calf tenderness. LYMPHATICS: No significant lymphadenopathy is noted PSYCHIATRIC: Normal psychiatric evaluation. Limitations: no limitations Course Vital Signs 05/30/25 19:02 Temperature 97.8 F Pulse Rate 60 Respiratory 16 Rate Blood Pressure 130/65 O2 Sat by Pulse 98 Oximetry Medical Decision Making - Medical Decision Making EKG is interpreted by myself and EKG shows sinus bradycardia 58 bpm LA interval is 164 QRS is 91 QT interval is 431 QTc is 427. Patient's EKG shows some slight ST segment depression in V3 through V6 as well as inferior leads II and aVF Was pt. sent in by a medical professional or institution (, PA, DIRECTOR SALES AND TRADE MARKETING, urgent care, hospital, or penitentiary...) When possible be specific @ -No Did you speak to anyone other than the patient for history (EMS, parent, family, police, friend...)? What history was obtained from this source @ -No Did you review nursing and triage notes (agree or disagree)? Why? @ -I reviewed and agree with nursing and triage notes Were old charts reviewed (outside hosp., previous admission, EMS record, old EKG, old radiological studies, urgent care reports/EKG's, penitentiary records)? Report findings @ -No old charts were reviewed Differential Diagnosis? @ -Differential Chest Pain: Stable Angina, Unstable Angina, STEMI, NSTEMI Aortic Dissection, Pneumothorax, Musculoskeletal, Esophageal Spasm GERD, Cholecystitis, Pancreatitis, Zoster, this is not meant to be an all-inclusive list. EKG interpreted by me (3pts min.). @ -As above X-rays interpreted by me (1pt min.). @ -Chest x-ray shows no acute abnormality CT interpreted by me (1pt min.). @ -None done U/S interpreted by me (1pt. min.). @ -None done What testing was considered but not performed or refused? (CT, X-rays, U/S, labs)? Why? @ -None What meds were considered but not given or refused? Why? @ -None Did you discuss the management of the patient with other professionals (professionals i.e. , PA, DIRECTOR SALES [employer] MARKETING, lab, RT, psych nurse, home health care social worker, circular knitter, teacher, executive vice president and chief financial officer, high risk case manager)? Give summary @ -[facility] the patient recommending orders Was smoking cessation discussed for >3mins.? @ -No Was critical care preformed (if so, how long)? @ -No Were there social determinants of health that impacted care today? How? (Homelessness, low income, unemployed, alcoholism, drug addiction, transpor tation, low edu. Level, literacy, decrease access to med. care, shelter, rehab)? @ -No Was there de-escalation of care discussed even if they declined (Discuss DNR or withdrawal of care, Hospice)? DNR status @ -No What co-morbidities impacted this encounter? (DM, HTN, Smoking, COPD, CAD, Cancer, CVA, ARF, Chemo, Hep., AIDS, mental health diagnosis, sleep apnea, morbid obesity)? @ -None Was patient admitted / discharged? Hospital course, mention meds given and route, prescriptions, significant lab abnormalities, going to OR and other pertinent info. @ -Patient had no chest pain during her ED course. [facility] with a consult cardiology. Undiagnosed new problem with uncertain prognosis? @ -No Drug Therapy requiring intensive monitoring for toxicity (Heparin, Nitro, Insulin, Cardizem)? @ -No Were any procedures done? @ -No Diagnosis/symptom? @ -Chest pain Acute, or Chronic, or Acute on Chronic? @ -Acute Uncomplicated (without systemic symptoms) or Complicated (systemic symptoms)? @ -Located Side effects of treatment? @ -No Exacerbation, Progression, or Severe Exacerbation? @ -No Poses a threat to life or bodily function? How? (Chest pain, USA, NC, pneumonia, PE, COPD, DKA, ARF, appy, cholecystitis, CVA, Diverticulitis, Homicidal, Suicidal, threat to staff... and all critical care pts) @ -Yes this could lead to an NC and endorgan dysfunction - Lab Data Result diagrams: 05/30/25 19:29 05/30/25 19:29 Lab Results 05/30/25 05/30/25 05/30/25 Range/Units 19:29 19:29 19:29 WBC 8.50 (4.50-10.00) 10*3/uL RBC 3.16 L (4.10-5.20) 10*6/uL Hgb 9.5 L (12.0-15.0) g/dL Hct 29.9 L (37.2-46.3) % MCV 94.6 (80.0-97.0) fL MCH 30.1 (27.0-32.0) pg MCHC 31.8 L (32.0-37.0) g/dL Plt Count 319 (140-440) 10*3/uL MPV 9.6 (9.5-12.2) fL Immature Gran % (Auto) 0.6 % Neutrophils % 77.4 % Lymphocytes % 12.1 % Monocytes % 8.5 % Eosinophils % 1.2 % Basophils % 0.2 % Immature Gran # 0.05 H (0.00-0.04) 10*3/uL Neutrophils # 6.58 (1.80-7.70) 10*3/uL Lymphocytes # 1.03 (0.90-5.00) 10*3/uL Monocytes # 0.72 (0.20-1.00) 10*3/uL Eosinophils # 0.10 (0.04-0.35) 10*3/uL Basophils # 0.02 (0.00-0.10) 10*3/uL PT 10.8 (10.0-12.5) sec INR 1.0 (<1.2) APTT 23.4 (22.0-30.0) sec Sodium 138 (137-145) mmol/L Potassium 5.6 H (3.5-5.1) mmol/L Chloride 106 (98-107) mmol/L Carbon Dioxide 21 L (22-30) mmol/L Anion Gap 11 mmol/L BUN 61 H (7-17) mg/dL Creatinine 1.29 H (0.52-1.04) mg/dL Est GFR (CKD-EPI)AfAm 48 (>60 ml/min/1.73 sqM) Est GFR (CKD-EPI)NonAf 42 (>60 ml/min/1.73 sqM) Glucose 118 H (74-99) mg/dL Calcium 8.9 (8.4-10.2) mg/dL Magnesium 2.0 (1.6-2.3) mg/dL Total Bilirubin 0.4 (0.2-1.3) mg/dL AST 28 (14-36) U/L ALT 18 (4-34) U/L Alkaline Phosphatase 95 (38-126) U/L Troponin I (0.000-0.034) ng/mL Total Protein 6.7 (6.3-8.2) g/dL Albumin 3.8 (3.5-5.0) g/dL 05/30/25 Range/Units 19:29 WBC (4.50-10.00) 10*3/uL RBC (4.10-5.20) 10*6/uL Hgb (12.0-15.0) g/dL Hct (37.2-46.3) % MCV (80.0-97.0) fL MCH (27.0-32.0) pg MCHC (32.0-37.0) g/dL Plt Count (140-440) 10*3/uL MPV (9.5-12.2) fL Immature Gran % (Auto) % Neutrophils % % Lymphocytes % % Monocytes % % Eosinophils % % Basophils % % Immature Gran # (0.00-0.04) 10*3/uL Neutrophils # (1.80-7.70) 10*3/uL Lymphocytes # (0.90-5.00) 10*3/uL Monocytes # (0.20-1.00) 10*3/uL Eosinophils # (0.04-0.35) 10*3/uL Basophils # (0.00-0.10) 10*3/uL PT (10.0-12.5) sec INR (<1.2) APTT (22.0-30.0) sec Sodium (137-145) mmol/L Potassium (3.5-5.1) mmol/L Chloride (98-107) mmol/L Carbon Dioxide (22-30) mmol/L Anion Gap mmol/L BUN (7-17) mg/dL Creatinine (0.52-1.04) mg/dL Est GFR (CKD-EPI)AfAm (>60 ml/min/1.73 sqM) Est GFR (CKD-EPI)NonAf (>60 ml/min/1.73 sqM) Glucose (74-99) mg/dL Calcium (8.4-10.2) mg/dL Magnesium (1.6-2.3) mg/dL Total Bilirubin (0.2-1.3) mg/dL AST (14-36) U/L ALT (4-34) U/L Alkaline Phosphatase (38-126) U/L Troponin I <0.012 (0.000-0.034) ng/mL Total Protein (6.3-8.2) g/dL Albumin (3.5-5.0) g/dL Disposition Clinical Impression: Chest pain Disposition: ADMITTED IP TO THIS [facility] Referrals: Nick Brush MD [Primary Care Provider] - 1-2 days Time of Disposition: 20:25
[2025-05-30 19:44] LABS: Basophils # (A) 0.02 10*3/uL (0.00-0.10); Basophils % (A) 0.2 %; Eosinophils # (A) 0.10 10*3/uL (0.04-0.35); Eosinophils % (A) 1.2 %; HCT 29.9 % (37.2-46.3); HGB 9.5 g/dL (12.0-15.0); Lymphocytes # (A) 1.03 10*3/uL (0.90-5.00); Lymphocytes % (A) 12.1 %; MCH 30.1 pg (27.0-32.0); MCHC 31.8 g/dL (32.0-37.0); MCV 94.6 fL (80.0-97.0); Monocytes # (A) 0.72 10*3/uL (0.20-1.00); Monocytes % (A) 8.5 %; Neutrophils # (A) 6.58 10*3/uL (1.80-7.70); Neutrophils % (A) 77.4 %; Platelet Count 319 10*3/uL (140-440); RBC 3.16 10*6/uL (4.10-5.20); RDW 12.9 % (11.5-14.5); WBC 8.50 10*3/uL (4.50-10.00)
[2025-05-30] MEDS: NITROGLYCERIN OINT 1 INCH/GM PACKET TOPICAL STA (19:46)
[2025-05-30] MEDS: ASPIRIN 81 MG PO STA (19:47)
[2025-05-30 19:54] LABS: INR 1.0 (<1.2); Partial Thromboplastin Time 23.4 sec (22.0-30.0); Prothrombin Time 10.8 sec (10.0-12.5)
[2025-05-30 20:00] LABS: ALT 18 U/L (4-34); AST 28 U/L (14-36); African American GFR (CKD) 48 (>60 ml/min/1.73 sqM); Albumin 3.8 g/dL (3.5-5.0); Alkaline Phosphatase 95 U/L (38-126); Anion Gap 11 mmol/L; Blood Urea Nitrogen 61 mg/dL (7-17); Calcium 8.9 mg/dL (8.4-10.2); Carbon Dioxide 21 mmol/L (22-30); Chloride 106 mmol/L (98-107); Glucose 118 mg/dL (74-99); Magnesium 2.0 mg/dL (1.6-2.3); Non-African American GFR(CKD) 42 (>60 ml/min/1.73 sqM); Potassium 5.6 mmol/L (3.5-5.1); Sodium 138 mmol/L (137-145); Total Protein 6.7 g/dL (6.3-8.2)
--- NOTE | 2025-05-30 20:07 | XR ---
EXAMINATION TYPE: XR chest 2V DATE OF EXAM: 05/30/2025 7:58 PM COMPARISON: Chest radiographs from 01/15/2024 TECHNIQUE: XR chest 2V Frontal and lateral views of the chest. CLINICAL INDICATION:Female, 74 years old with history of Chest Pain; FINDINGS: Lungs/Pleura: There is no evidence of pleural effusion, focal consolidation, or pneumothorax. Pulmonary vascularity: Unremarkable. Heart/mediastinum: Cardiomediastinal silhouette is prominent in size. Musculoskeletal: Multiple level degenerative disc disease changes seen throughout the spine. Other: Multiple surgical clips within the right axilla and right breast. IMPRESSION: No acute cardiopulmonary disease/process. [facility], , 05/30/2025 8:04 PM
[2025-05-30] MEDS ORDERED: NITROGLYCERIN SL TABS 0.4 MG TAB SUBLINGUAL PRN (20:25)
[2025-05-30] MEDS ORDERED: DEXTROSE 50% SYRINGE 50 ML IVP PRN ×2 (23:15)
[2025-05-30] MEDS: NITROGLYCERIN OINT 1 INCH/GM PACKET TOPICAL SCH (23:42)
[2025-05-30] MEDS: CYCLOBENZAPRINE 10 MG TAB PO SCH (23:42)
[2025-05-30] MEDS: GABAPENTIN 300 MG CAP PO SCH (23:42)
[2025-05-31] MEDS: SODIUM ZIRCONIUM CYCLOSILICATE 10 GM PACKET PO ONE (00:32)
[2025-05-31] MEDS: COLCHICINE 0.6 MG EACH PO SCH (00:32)
[2025-05-31 03:15] LABS: Glucose,Whole Blood 64 mg/dL (70-110)
[2025-05-31 06:09] LABS: Glucose,Whole Blood 85 mg/dL (70-110)
[2025-05-31] MEDS: INSULIN LISPRO (HumaLOG) 100 UNIT/ML 10 mL VL SQ SCH (06:13)
[2025-05-31 08:15] LABS: Cholesterol 183.00 mg/dL (0.00-200.00); HDL Cholesterol 34.10 mg/dL (40.00-60.00); LDL Cholesterol,Calculated 126.5 mg/dL (0.0-131.0); Triglycerides 112.00 mg/dL (0.00-149.00); VLDL Calculation 22.40 mg/dL (5.00-40.00)
[2025-05-31 08:42] VITALS: BP 144/60; PULSE 61; RESP 16; TEMP 97.3
[2025-05-31] MEDS ORDERED: ASPIRIN 325 MG TAB PO SCH (09:00)
--- NOTE | 2025-05-31 09:29 | P.CRDCN ---
History of Present Illness History of present illness: HISTORY OF PRESENT ILLNESS: This is a 74-year-old female with a past medical history significant for breast cancer in remission, hypertension, hyperlipidemia, obesity, and coronary artery disease with previous stenting x 6. Patient follows with a physician at [facility], Dr. Rdz. We have been asked to see the patient in consultation for chest pain. Patient examined at the bedside. Patient states yesterday she began to have pain in her back that radiated into her chest. She states that she did not feel well for most of the day yesterday. At the time of examination this morning she denies any chest pain or pressure. Denies any shortness of breath. She does report having a history of cardiomyopathy and states that her EF was low at 1 point but it was at almost 50% at her most recent echo. EKG completed with T wave inversions in lateral leads. Troponin negative x 3. REVIEW OF SYSTEMS: At the time of my exam: CONSTITUTIONAL: Denies fever or chills. HEENT: Denies blurred vision, vision changes, or eye pain. Denies hemoptysis CARDIOVASCULAR: Denies chest pain. Denies orthopnea. Denies PND. Denies palpitations RESPIRATORY: Denies shortness of breath. GASTROINTESTINAL: Denies abdominal pain. Denies nausea or vomiting. HEMATOLOGIC: Denies bleeding disorders. GENITOURINARY: Denies any blood in urine. SKIN: Denies pruitis. Denies rash. PHYSICAL EXAM: VITAL SIGNS: Reviewed. GENERAL: Well-developed in no acute distress. HEENT: Head is normocephalic. Pupils are equal, round. Sclerae anicteric. Mucous membranes of the mouth are moist. Neck supple. No JVD or thyromegaly LUNGS: Respirations even and unlabored. Lungs essentially clear to auscultation bilaterally. HEART: Regular rate and rhythm. S1 and S2 heard. ABDOMEN: Soft. Nondistended. Nontender. EXTREMITIES: Normal range of motion. No clubbing or cyanosis. Peripheral pulses intact. No lower extremity edema NEUROLOGIC: Awake and alert. Oriented x 3. ASSESSMENT: Chest pain, troponin negative x 3 Coronary artery disease with previous stenting x 6 per patient, no records available at this time Ischemic cardiomyopathy with improved EF, per patient, no records available at this time History of breast cancer, in remission per patient Hypertension Hyperlipidemia Obesity: BMI 31.7 PLAN: An acute coronary event has been ruled out Resume home cardiac medications Recommended echocardiogram and stress testing. Patient declined to have either test performed. She understands the risks of not having stress testing performed in the hospital. She verbalized understanding. She would like to be discharged home and follow-up with her primary adult basic education instructor. We will sign off. Please reconsult if needed. Nurse practitioner note has been reviewed by physician. Signing provider agrees with the documented findings, assessment, and plan of care documented by ORTHODONTIC TECHNICIAN ASSISTANT as a scribe. Past Medical History Past Medical History: Cancer, Diabetes Mellitus, Hyperlipidemia, Hypertension, Osteoarthritis (OA) Additional Past Medical History / Comment(s): Neuropathy, back pain, macular edema, gout History of Any Multi-Drug Resistant Organisms: None Reported Past Surgical History: Breast Surgery, Heart Catheterization With Stent, Tonsillectomy Additional Past Surgical History / Comment(s): Carpal tunnel surgeries to jovana hands & cubital tunnel surg bilateral elbows, bilat hip replaced, jovana cataracts removed. 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 ago, never a consistent smoker, was just very occasional Past Drug Use History: None Reported - Past Family History Sister(s) Family Medical History: Cancer Additional Family Medical History / Comment(s): Skin cancer. Father Family Medical History: Cancer Additional Family Medical History / Comment(s): Skin cancer. Medications and Allergies Home Medications Medication Instructions Recorded Confirmed Type Cyclobenzaprine [Flexeril] 10 mg PO HS 11/20/19 05/30/25 History Escitalopram [Lexapro] 10 mg PO DAILY 11/20/19 05/30/25 History Gabapentin [Neurontin] 300 mg PO TID 11/20/19 05/30/25 History Folic Acid 0.8 mg PO DAILY 01/09/24 05/30/25 History Insulin Glargine,Hum.rec.anlog 110 units SQ DAILY 01/09/24 05/30/25 History [Lantus Solostar Pen] Insulin Lispro [humaLOG Kwikpen] 5 - 10 unit SQ TID-W/MEALS 01/09/24 05/30/25 History Spironolactone [Aldactone] 25 mg PO DAILY #30 tab 01/16/24 05/30/25 Rx Clopidogrel [Plavix] 75 mg PO DAILY 05/30/25 05/30/25 History Colchicine 0.6 mg PO DAILY 05/30/25 05/30/25 History Evolocumab [Repatha Sureclick] 140 mg SQ DIRECTED 05/30/25 05/30/25 History Nitroglycerin 0.2MG/Hr Patch 1 patch TRANSDERM DAILY 05/30/25 05/30/25 History [Nitro-Dur 0.2MG/Hr Patch] Nitroglycerin Sl Tabs [Nitrostat] 0.4 mg SUBLINGUAL Q5M PRN 05/30/25 05/30/25 History Torsemide [Demadex] 20 mg PO Q48H 05/30/25 05/30/25 History Torsemide [Demadex] 30 mg PO Q48H 05/30/25 05/30/25 History allopurinoL [Zyloprim] 300 mg PO DIRECTED 05/30/25 05/30/25 History carvediloL [Coreg] 6.25 mg PO Q12H 05/30/25 05/30/25 History lisinopriL [Zestril] 10 mg PO DAILY 05/30/25 05/30/25 History Allergies Allergy/AdvReac Type Severity Reaction Status Date / Time celecoxib [From Celebrex] Allergy fluid Verified 05/30/25 21:06 retention Enxwold-OHL-EpY Reductase Allergy Swelling Verified 05/30/25 21:06 Inhibitor Physical Exam Vitals: Vital Signs Temp Pulse Pulse Resp BP BP Pulse Ox 05/31/25 00:41 98.7 F 63 17 172/65 100 05/30/25 21:19 97.3 F L 63 17 169/61 99 05/30/25 21:03 98.7 F 64 16 132/59 99 05/30/25 19:02 97.8 F 60 16 130/65 98 Intake and Output 05/30/25 05/31/25 05/31/25 22:59 06:59 14:59 Other: Voiding Method Toilet # Voids 0 1 Weight 76.204 kg Results 05/30/25 19:29 05/30/25 19:29 Cardiac Enzymes 05/30/25 05/30/25 05/30/25 Range/Units 19:29 19:29 23:08 AST 28 (14-36) U/L Troponin I <0.012 <0.012 (0.000-0.034) ng/mL 05/31/25 Range/Units 01:54 AST (14-36) U/L Troponin I <0.012 (0.000-0.034) ng/mL Coagulation 05/30/25 Range/Units 19:29 PT 10.8 (10.0-12.5) sec APTT 23.4 (22.0-30.0) sec CBC 05/30/25 Range/Units 19:29 WBC 8.50 (4.50-10.00) 10*3/uL RBC 3.16 L (4.10-5.20) 10*6/uL Hgb 9.5 L (12.0-15.0) g/dL Hct 29.9 L (37.2-46.3) % Plt Count 319 (140-440) 10*3/uL Comprehensive Metabolic Panel 05/30/25 Range/Units 19:29 Sodium 138 (137-145) mmol/L Potassium 5.6 H (3.5-5.1) mmol/L Chloride 106 (98-107) mmol/L Carbon Dioxide 21 L (22-30) mmol/L BUN 61 H (7-17) mg/dL Creatinine 1.29 H (0.52-1.04) mg/dL Glucose 118 H (74-99) mg/dL Calcium 8.9 (8.4-10.2) mg/dL AST 28 (14-36) U/L ALT 18 (4-34) U/L Alkaline Phosphatase 95 (38-126) U/L Total Protein 6.7 (6.3-8.2) g/dL Albumin 3.8 (3.5-5.0) g/dL Current Medications Generic Name Dose Route Start Last Admin Trade Name Freq PRN Reason Stop Dose Admin Aspirin 325 mg 05/31/25 09:00 Aspirin 325 Mg Tab PO DAILY [facility] Clopidogrel Bisulfate 75 mg 05/31/25 09:00 Clopidogrel 75 Mg Tab PO DAILY [facility] Colchicine 0.6 mg 05/30/25 23:45 05/31/25 00:32 Colchicine 0.6 Mg Each PO 0.6 mg DAILY [facility] Administration Cyclobenzaprine HCl 10 mg 05/30/25 23:15 05/30/25 23:42 Cyclobenzaprine 10 Mg Tab PO 10 mg HS NURIS Administration Dextrose/Water 25 ml 05/30/25 23:15 Dextrose 50% Syringe 50 Ml IVP PER PROTOCOL PRN Hypoglycemia Protocol Dextrose/Water 50 ml 05/30/25 23:15 Dextrose 50% Syringe 50 Ml IVP PER PROTOCOL PRN Hypoglycemia Protocol Escitalopram Oxalate 10 mg 05/31/25 09:00 Escitalopram 10 Mg Tab PO DAILY [facility] Folic Acid 1 mg 05/31/25 09:00 Folic Acid 1 Mg Tab PO DAILY [facility] Gabapentin 300 mg 05/30/25 23:15 05/30/25 23:42 Gabapentin 300 Mg Cap PO 300 mg TID [facility] Administration Insulin Human Lispro 0 unit 05/31/25 07:30 05/31/25 06:13 Insulin Lispro (Humalog) 100 Unit/Ml 10 Ml Vl SQ Not Given ACHS [facility] Protocol Nitroglycerin 0.4 mg 05/30/25 20:25 Nitroglycerin Sl Tabs 0.4 Mg Tab SUBLINGUAL Q5M PRN Chest Pain Nitroglycerin 1 inch 05/31/25 00:00 05/31/25 06:56 Nitroglycerin Oint 1 Inch/Gm Packet TOPICAL 1 inch Q6HR [facility] Administration Intake and Output 05/30/25 05/31/25 05/31/25 22:59 06:59 14:59 Other: Voiding Method Toilet # Voids 0 1 Weight 76.204 kg 05/30/25 19:29 05/30/25 19:29
[2025-05-31] MEDS: TORSEMIDE 20 MG TAB PO SCH (11:03)
[2025-05-31] MEDS: ESCITALOPRAM 10 MG TAB PO SCH (11:03)
[2025-05-31] MEDS: CLOPIDOGREL 75 MG TAB PO SCH (11:03)
[2025-05-31] MEDS: FOLIC ACID 1 MG TAB PO SCH (11:04)
[2025-05-31] MEDS: SPIRONOLACTONE 25 MG TAB PO SCH (11:04)
[2025-05-31] MEDS: ASPIRIN 81 MG PO SCH (11:04)
--- NOTE | 2025-06-01 14:31 | P.HPIM ---
History of Present Illness H&P Date: 05/31/25 Chief Complaint: Chest pain 74-year-old female who presents to the emergency department complaining of back and chest pain. Patient states she has a history of cardiac stents she has 6 done. Patient also has diabetes hypertension high cholesterol. Patient states an hour and a half prior to arrival she started experiencing some back pain and chest pain patient states she took 4 nitroglycerin and the pain went away. Patient states currently she has no pain. Patient denies any significant difficulty breathing. Patient Nuys any diaphoretic episode. Patient Nuys any nausea. Patient has abdominal pain. Patient denies any symptoms currently Review of Systems REVIEW OF SYSTEMS: CONSTITUTIONAL: No fever, no malaise, no fatigue. HEENT: No recent visual problems or hearing problems. Denied any sore throat. CARDIOVASCULAR: No chest pain, orthopnea, PND, no palpitations, no syncope. PULMONARY: No shortness of breath, no cough, no hemoptysis. GASTROINTESTINAL: No diarrhea, no nausea, no vomiting, no abdominal pain. NEUROLOGICAL: No headaches, no weakness, no numbness. HEMATOLOGICAL: Denies any bleeding or petechiae. GENITOURINARY: Denies any burning micturition, frequency, or urgency. MUSCULOSKELETAL/RHEUMATOLOGICAL: Denies any joint pain, swelling, or any muscle pain. ENDOCRINE: Denies any polyuria or polydipsia. The rest of the 14-point review of systems is negative. Past Medical History Past Medical History: Cancer, Diabetes Mellitus, Hyperlipidemia, Hypertension, Osteoarthritis (OA) Additional Past Medical History / Comment(s): Neuropathy, back pain, macular edema, gout History of Any Multi-Drug Resistant Organisms: None Reported Past Surgical History: Breast Surgery, Heart Catheterization With Stent, Tonsillectomy Additional Past Surgical History / Comment(s): Carpal tunnel surgeries to jovana hands & cubital tunnel surg bilateral elbows, bilat hip replaced, jovana cataracts removed. 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 ago, never a consistent smoker, was just very occasional Past Drug Use History: None Reported - Past Family History Sister(s) Family Medical History: Cancer Additional Family Medical History / Comment(s): Skin cancer. Father Family Medical History: Cancer Additional Family Medical History / Comment(s): Skin cancer. Medications and Allergies Home Medications Medication Instructions Recorded Confirmed Type Cyclobenzaprine [Flexeril] 10 mg PO HS 11/20/19 05/30/25 History Escitalopram [Lexapro] 10 mg PO DAILY 11/20/19 05/30/25 History Gabapentin [Neurontin] 300 mg PO TID 11/20/19 05/30/25 History Folic Acid 0.8 mg PO DAILY 01/09/24 05/30/25 History Insulin Glargine,Hum.rec.anlog 110 units SQ DAILY 01/09/24 05/30/25 History [Lantus Solostar Pen] Insulin Lispro [humaLOG Kwikpen] 5 - 10 unit SQ TID-W/MEALS 01/09/24 05/30/25 History Spironolactone [Aldactone] 25 mg PO DAILY #30 tab 01/16/24 05/30/25 Rx Clopidogrel [Plavix] 75 mg PO DAILY 05/30/25 05/30/25 History Colchicine 0.6 mg PO DAILY 05/30/25 05/30/25 History Evolocumab [Repatha Sureclick] 140 mg SQ DIRECTED 05/30/25 05/30/25 History Nitroglycerin 0.2MG/Hr Patch 1 patch TRANSDERM DAILY 05/30/25 05/30/25 History [Nitro-Dur 0.2MG/Hr Patch] Nitroglycerin Sl Tabs [Nitrostat] 0.4 mg SUBLINGUAL Q5M PRN 05/30/25 05/30/25 History Torsemide [Demadex] 20 mg PO Q48H 05/30/25 05/30/25 History Torsemide [Demadex] 30 mg PO Q48H 05/30/25 05/30/25 History allopurinoL [Zyloprim] 300 mg PO DIRECTED 05/30/25 05/30/25 History carvediloL [Coreg] 6.25 mg PO Q12H 05/30/25 05/30/25 History lisinopriL [Zestril] 10 mg PO DAILY 05/30/25 05/30/25 History Aspirin 81 mg PO DAILY tab 05/31/25 Rx Allergies Allergy/AdvReac Type Severity Reaction Status Date / Time celecoxib [From Celebrex] Allergy fluid Verified 05/30/25 21:06 retention [id number] Reductase Allergy Swelling Verified 05/30/25 21:06 Inhibitor Physical Exam Vitals: Vital Signs Temp Pulse Pulse Resp BP BP Pulse Ox 05/31/25 08:41 97.3 F L 61 16 144/60 100 05/31/25 00:41 98.7 F 63 17 172/65 100 05/30/25 21:19 97.3 F L 63 17 169/61 99 05/30/25 21:03 98.7 F 64 16 132/59 99 05/30/25 19:02 97.8 F 60 16 130/65 98 Intake and Output 05/30/25 05/31/25 05/31/25 22:59 06:59 14:59 Other: Voiding Method Toilet # Voids 0 1 Weight 76.204 kg GENERAL:Patient is well-developed and well-nourished. Patient is nontoxic and well-hydrated and is in no acute distress. ENT:Neck is soft and supple. No significant lymphadenopathy is noted. O ropharynx is clear. Moist mucous membranes. Neck has full range of motion without eliciting any pain. EYES:sclera were anicteric and conjunctiva were pink and moist. Extraocular movements were intact and pupils were equal round and reactive to light. Eyelids were unremarkable. PULMONARY:Unlabored respirations. Good breath sounds bilaterally. No audible rales rhonchi or wheezing was noted. CARDIOVASCULAR:There is a regular rate and rhythm without any murmurs gallops or rubs. ABDOMEN:Soft and nontender with normal bowel sounds. SKIN:Skin is clear with no lesions or rashes and otherwise unremarkable. NEUROLOGIC:Patient is alert and oriented x3. Cranial nerves II through XII are grossly intact. Motor and sensory are also intact. Normal speech, volume and content. Symmetrical smile. MUSCULOSKELETAL:Normal extremities with adequate strength and full range of motion. No lower extremity swelling or edema. No calf tenderness. LYMPHATICS:No significant lymphadenopathy is noted PSYCHIATRIC:Normal psychiatric evaluation. Results CBC & Chem 7: 05/30/25 19:29 05/30/25 19:29 Labs: Abnormal Lab Results - Last 24 Hours (Table) 05/30/25 05/30/25 05/31/25 Range/Units 19:29 19:29 01:54 RBC 3.16 L (4.10-5.20) 10*6/uL Hgb 9.5 L (12.0-15.0) g/dL Hct 29.9 L (37.2-46.3) % MCHC 31.8 L (32.0-37.0) g/dL Immature Gran # 0.05 H (0.00-0.04) 10*3/uL Potassium 5.6 H (3.5-5.1) mmol/L Carbon Dioxide 21 L (22-30) mmol/L BUN 61 H (7-17) mg/dL Creatinine 1.29 H (0.52-1.04) mg/dL Glucose 118 H (74-99) mg/dL POC Glucose (mg/dL) (70-110) mg/dL Hemoglobin A1c (<=6.0) % HDL Cholesterol 34.10 L (40.00-60.00) mg/dL 05/31/25 05/31/25 Range/Units 01:54 03:12 RBC (4.10-5.20) 10*6/uL Hgb (12.0-15.0) g/dL Hct (37.2-46.3) % MCHC (32.0-37.0) g/dL Immature Gran # (0.00-0.04) 10*3/uL Potassium (3.5-5.1) mmol/L Carbon Dioxide (22-30) mmol/L BUN (7-17) mg/dL Creatinine (0.52-1.04) mg/dL Glucose (74-99) mg/dL POC Glucose (mg/dL) 64 L (70-110) mg/dL Hemoglobin A1c 7.1 H (<=6.0) % HDL Cholesterol (40.00-60.00) mg/dL Thrombosis Risk Factor Assmnt - Choose All That Apply Any of the Below Risk Factors Present?: No Other Risk Factors: Yes Each Risk Factor Represents 2 Points: Age 61-74 years Thrombosis Risk Factor Assessment Total Risk Factor Score: 2 Thrombosis Risk Factor Assessment Level: Low Risk Assessment and Plan Assessment: Chest pain; patient is admitted to telemetry; Coronary artery disease with previous stenting x 6 per patient -monitor EKG and trend troponin; 2D echo -We will continue with aspirin, home dose of Plavix and beta-blockers -Consult cardiology Ischemic cardiomyopathy with improved EF, per patient, no records available at this time; commend 2D echo History of breast cancer, in remission per patient Hypertension; Coreg 6.25 mg twice daily, lisinopril 10 mg daily, Aldactone 25 mg daily Hyperlipidemia; patient is currently on Repatha Hyperuricemia/gout; allopurinol 300 mg daily DVT prophylaxis; SCDs CODE STATUS; full code
--- NOTE | 2025-06-01 14:32 | P.DS ---
Providers Date of admission: 05/30/25 20:25 Expected date of discharge: 05/31/25 Attending physician: Elida Mcclelland Primary care physician: Nick Mora [facility] Course: 74-year-old female who presents to the emergency department complaining of back and chest pain. Patient states she has a history of cardiac stents she has 6 done. Patient also has diabetes hypertension high cholesterol. Patient states an hour and a half prior to arrival she started experiencing some back pain and chest pain patient states she took 4 nitroglycerin and the pain went away. Patient states currently she has no pain. Patient denies any significant di fficulty breathing. Patient Nuys any diaphoretic episode. Patient Nuys any nausea. Patient has abdominal pain. Patient denies any symptoms currently Chest pain; patient is admitted to telemetry; Coronary artery disease with previous stenting x 6 per patient -monitor EKG and trend troponin; 2D echo -We will continue with aspirin, home dose of Plavix and beta-blockers -Consult cardiology Ischemic cardiomyopathy with improved EF, per patient, no records available at this time; commend 2D echo History of breast cancer, in remission per patient Hypertension; Coreg 6.25 mg twice daily, lisinopril 10 mg daily, Aldactone 25 mg daily Hyperlipidemia; patient is currently on Repatha Hyperuricemia/gout; allopurinol 300 mg daily Patient has been evaluated by cardiology and is recommended 2D echo and nuclear stress test; patient is refusing any further testing and wants it conducted as outpatient; patient to discharge home and follow-up with primary cardiology Plan - Discharge Summary Discharge Rx Participant: Yes New Discharge Prescriptions: New Aspirin 81 mg PO DAILY tab Continue Escitalopram [Lexapro] 10 mg PO DAILY Cyclobenzaprine [Flexeril] 10 mg PO HS Gabapentin [Neurontin] 300 mg PO TID Insulin Glargine,Hum.rec.anlog [Lantus Solostar Pen] 110 units SQ DAILY Folic Acid 0.8 mg PO DAILY Spironolactone [Aldactone] 25 mg PO DAILY #30 tab lisinopriL [Zestril] 10 mg PO DAILY Nitroglycerin 0.2MG/Hr Patch [Nitro-Dur 0.2MG/Hr Patch] 1 patch TRANSDERM DAILY Insulin Lispro [humaLOG Kwikpen] 5 - 10 unit SQ TID-W/MEALS carvediloL [Coreg] 6.25 mg PO Q12H Nitroglycerin Sl Tabs [Nitrostat] 0.4 mg SUBLINGUAL Q5M PRN PRN Reason: Chest Pain Torsemide [Demadex] 30 mg PO Q48H Torsemide [Demadex] 20 mg PO Q48H allopurinoL [Zyloprim] 300 mg PO DIRECTED Colchicine 0.6 mg PO DAILY Clopidogrel [Plavix] 75 mg PO DAILY Evolocumab [Repatha Sureclick] 140 mg SQ DIRECTED Discharge Medication List Cyclobenzaprine [Flexeril] 10 mg PO HS 11/20/19 [History] Escitalopram [Lexapro] 10 mg PO DAILY 11/20/19 [History] Gabapentin [Neurontin] 300 mg PO TID 11/20/19 [History] Folic Acid 0.8 mg PO DAILY 01/09/24 [History] Insulin Glargine,Hum.rec.anlog [Lantus Solostar Pen] 110 units SQ DAILY 01/09/24 [History] Insulin Lispro [humaLOG Kwikpen] 5 - 10 unit SQ TID-W/MEALS 01/09/24 [History] Spironolactone [Aldactone] 25 mg PO DAILY #30 tab 01/16/24 [Rx] Clopidogrel [Plavix] 75 mg PO DAILY 05/30/25 [History] Colchicine 0.6 mg PO DAILY 05/30/25 [History] Evolocumab [Repatha Sureclick] 140 mg SQ DIRECTED 05/30/25 [History] Nitroglycerin 0.2MG/Hr Patch [Nitro-Dur 0.2MG/Hr Patch] 1 patch TRANSDERM DAILY 05/30/25 [History] Nitroglycerin Sl Tabs [Nitrostat] 0.4 mg SUBLINGUAL Q5M PRN 05/30/25 [History] Torsemide [Demadex] 20 mg PO Q48H 05/30/25 [History] Torsemide [Demadex] 30 mg PO Q48H 05/30/25 [History] allopurinoL [Zyloprim] 300 mg PO DIRECTED 05/30/25 [History] carvediloL [Coreg] 6.25 mg PO Q12H 05/30/25 [History] lisinopriL [Zestril] 10 mg PO DAILY 05/30/25 [History] Aspirin 81 mg PO DAILY tab 05/31/25 [Rx] Follow up Appointment(s)/Referral(s): Nick Brush MD [Primary Care Provider] - 1-2 days Discharge Disposition: HOME SELF-CARE
== END 2025-05-31 15:00 | disposition home or self-care (01) ==
LOC: EC 19:01 → 1SOBS 20:25
PROVIDERS: ADMIT Hospitalist; ATTEND Hospitalist
DX: R07.9 Chest pain, unspecified (principal); I25.10 Atherosclerotic heart disease of native coronary artery without angina pectoris; I25.5 Ischemic cardiomyopathy; I10 Essential (primary) hypertension; Z95.5 Presence of coronary angioplasty implant and graft; E11.40 Type 2 diabetes mellitus with diabetic neuropathy, unspecified; E11.311 Type 2 diabetes mellitus with unspecified diabetic retinopathy with macular edema; E78.00 Pure hypercholesterolemia, unspecified; M10.9 Gout, unspecified; E66.9 Obesity, unspecified; Z68.31 Body mass index [BMI] 31.0-31.9, adult; R10.9 Unspecified abdominal pain; R00.1 Bradycardia, unspecified; M54.9 Dorsalgia, unspecified; Z79.02 Long term (current) use of antithrombotics/antiplatelets; Z79.4 Long term (current) use of insulin; Z79.84 Long term (current) use of oral hypoglycemic drugs; Z79.899 Other long term (current) drug therapy; Z88.6 Allergy status to analgesic agent; Z88.8 Allergy status to other drugs, medicaments and biological substances; Z85.3 Personal history of malignant neoplasm of breast; Z87.891 Personal history of nicotine dependence
CPT/HCPCS: 99285; 36415; 93005; 80061; 80053; 83735; 84484 ×2; 85025; 85610; 85730; 83036; 71046; G0378 ×2